=== PATIENT | male | born 1990 | race Caucasian/White ===

== ENCOUNTER 2021-01-28 13:00 | Emergency (ER) | payer OTHER, SELFPAY ==
[2021-01-28 13:08] VITALS: BP 150/83; PULSE 98; RESP 18; TEMP 36.7; O2SAT 98
[2021-01-28 13:17] VITALS: BP 150/83; PULSE 98; RESP 18; TEMP 36.7; O2SAT 98
--- NOTE | 2021-01-28 14:20 | ED.URI ---
HPI - URI/Sore Throat General Chief Complaint: Upper Respiratory Infection Stated Complaint: Congestion, Coughing, chills and headache Source: patient, family, RN notes reviewed and old records reviewed Mode of arrival: ambulatory Limitations: no limitations History of Present Illness HPI Narrative: 30 year old male who presents to express care with complaints of cough with expectoration of white mucous, chills,sweats, headache for the past 3-4 days,with stuffy nose and post nasal drainage, reports that he has been taking OTC Mucinex for his symptoms. Patient admits to some dyspnea with exertion and states that he has noted some wheezing at times Patient states that he does not know if he has had a fever, denies any ear pain or any sore throat. Patient admits to tobacco abuse of 1 pack daily of cigarettes for the past 10 years. MD elicited complaint: cough, rhinorrhea, nasal congestion and sinus pain Pertinent past history: other (bronchitis and tobacco abuse) Onset (ago): day(s) (3-4) Consistency: constant Description of mucous: other (white mucoid) Able to tolerate fluids by mouth: Yes Exacerbating factors: exertion Relieving factors: nothing Associated symptoms: chills, headache, rhinorrhea, nasal congestion, cough and shortness of breath (with exertion and wheezing) Treatments prior to arrival: other (Mucinex) Related Data Home Medications Medication Instructions Recorded Confirmed levetiracetam 750 mg PO BID 01/28/21 01/28/21 phenytoin sodium extended 100 mg PO DAILY 01/28/21 01/28/21 [Dilantin Extended] Allergies Allergy/AdvReac Type Severity Reaction Status Date / Time No Known Allergies Allergy Verified 01/28/21 13:16 Review of Systems Review of Systems: Narrative: CONSTITUTIONAL: Unknown if fever,positive chills, or sweats. EYES: Denies visual changes, redness, or discharge. ENT: Positive rhinorrhea, congestion, no sore throat, or otalgia. CARDIOVASCULAR: Denies chest pain, palpitations, or edema. RESPIRATORY: Positive productive cough or dyspnea with exertion. GASTROINTESTINAL: Denies abdominal pain, nausea, vomiting, or diarrhea. GENITOURINARY: Denies dysuria or hematuria. SKIN: Denies rash or itching. MUSCULOSKELETAL: Denies back pain, joint pain, or myalgia. NEUROLOGIC: positive headache,no numbness, or weakness. PSYCHIATRIC: Denies anxiety or depression. All systems reviewed & are unremarkable except as noted in HPI and below PMFSH Past Medical History Medical History (Updated 01/30/21 @ 21:26 by Debbie Lange NP) Bronchitis Epilepsy Surgical History Surgical History (Updated 01/30/21 @ 21:26 by Debbie Lange NP) History of appendectomy History of plastic surgery Forehead from dog bite S/P tonsillectomy and adenoidectomy Social History Social History (Updated 01/28/21 @ 14:31 by Debbie Lange NP) Smoking status: Current every day smoker Tobacco type: cigarettes Alcohol intake: current Living arrangements: with family Gender identity (if verbalized by the patient): Male Comments At time of signature, agree with nursing past medical, surgical, social and family history. There is no relevant family history pertinent to the presenting complaint Exam Narrative: Exam Narrative: GENERAL: Well-appearing, well-nourished, morbidly obese and in no acute distress. HEAD: Normocephalic, atraumatic. EYES: PERRLA and EOMI. ENT: Nares red with clear rhinorrhea no epistaxis. Mucous membranes moist.TM's normal with good light reflex, throat mild redness with no lesions or exudate, tonsils absent post nasal drainage present. NECK: Supple.no lymphadenopathy CHEST: Scattered wheezing to auscultation. No acute respiratory distress. O2 98% on room air HEART: Regular rate and rhythm. No murmur heard. Normal peripheral pulses. ABDOMEN: Soft, nontender, nondistended, normal active bowel sounds. EXTREMITIES: Normal range of motion. No edema. SKIN: Warm, dry, no rash. NEURO: No focal defi
== END 2021-01-28 14:43 | disposition home or self-care (01) ==
PROVIDERS: Emergency Provider Registered Nurse
DX: J40 Bronchitis, not specified as acute or chronic (principal); Z20.822 Contact with and (suspected) exposure to COVID-19; F17.210 Nicotine dependence, cigarettes, uncomplicated; G40.909 Epilepsy, unspecified, not intractable, without status epilepticus
CPT/HCPCS: 87426; 99213; C9803; G0463

== ENCOUNTER 2021-03-14 17:47 | Emergency (ER) | payer OTHER, SELFPAY ==
[2021-03-14 17:57] VITALS: BP 113/71; PULSE 85; RESP 18; TEMP 36.5; O2SAT 98
[2021-03-14 19:09] VITALS: BP 128/60; PULSE 85; RESP 16; O2SAT 97
--- NOTE | 2021-03-14 19:10 | PC.NURSE ---
Report received and care of pt assumed at this time.
--- NOTE | 2021-03-14 19:33 | ED.WOUNDLAC ---
HPI - Wound/Laceration General Chief Complaint: Wound/Laceration Stated Complaint: Finger Laceration Time Seen by Provider: 03/14/21 18:49 Source: patient Mode of arrival: ambulatory Limitations: no limitations History of Present Illness HPI narrative: This is a 30-year-old male that presents to the emergency department for laceration sustained just prior to arrival. Sustained to the left third finger while opening a can at work. He is not up to date on tetanus. Denies decreased ROM or numbness. Related Data Home Medications Medication Instructions Recorded Confirmed levetiracetam 750 mg PO BID 01/28/21 01/28/21 phenytoin sodium extended 100 mg PO DAILY 01/28/21 01/28/21 [Dilantin Extended] Allergies Allergy/AdvReac Type Severity Reaction Status Date / Time No Known Allergies Allergy Verified 03/14/21 18:00 Review of Systems Review of Systems: CONSTITUTIONAL: Denies fever SKIN: Reports laceration MUSCULOSKELETAL: Denies joint pain, or myalgia. NEUROLOGIC: Denies numbness All systems reviewed & are unremarkable except as noted in HPI and below PMFSH Past Medical History Medical History (Updated 03/14/21 @ 20:26 by Nuvia Fink PA-C) Bronchitis Epilepsy Surgical History Surgical History (Updated 01/30/21 @ 21:26 by Debbie Lange NP) History of appendectomy History of plastic surgery Forehead from dog bite S/P tonsillectomy and adenoidectomy Social History Social History (Updated 03/14/21 @ 19:37 by Nuvia Fink PA-C) Smoking status: Current every day smoker Tobacco type: cigarettes Substance use: never Gender identity (if verbalized by the patient): Male Exam Narrative: GENERAL: Well-appearing, well-nourished, and in no acute distress. HEAD: Normocephalic, atraumatic. EYES: EOMI. EXTREMITIES: Normal range of motion. No edema. Left third finger with small area (1cm) of skin avulsed to the distal phalanx palmar surface, no active bleeding SKIN: Warm, dry, no rash. NEURO: No focal deficits. Alert and oriented x3. PSYCH: Normal mood and affect Course Vital Signs Vital signs: Vital Signs Temperature 97.7 F 03/14/21 17:57 Pulse Rate 85 03/14/21 17:57 Respiratory Rate 18 08/26/21 17:57 Blood Pressure 113/71 03/14/21 17:57 Pulse Oximetry 98 03/14/21 17:57 Temperature 97.7 F 03/14/21 17:57 Pulse Rate 85 03/14/21 19:09 Respiratory Rate 16 03/14/21 19:09 Blood Pressure 128/60 03/14/21 19:09 Pulse Oximetry 97 03/14/21 19:09 Procedures Laceration Laceration 1: Date: 03/14/21 Time: 20:23 Site: hand Side (If applicable): left Size (cm): 1 Description: other (Skin avulsed) ====== Skin Level ====== ====== Subcutaneous Layer ====== ====== Muscle Layer ====== ====== Tendon Layer ====== Dressing: Wound was irrigated and bleeding controlled with Surgicel MDM - Wound/Laceration MDM Narrative Medical decision making narrative: Patient presents to emergency department for a small area of skin avulsion to the tip of the left third finger. Wound was irrigated. Patient was updated on tetanus. Bleeding was controlled with Surgicel. Patient was educated on wound care. He is to follow-up with primary care doctor. He was given warnings to return to the ER Critical Care Time Critical Care Time Critical Care Time: No Discharge Plan Discharge Clinical Impression: Laceration Patient Disposition: Home, Self-Care Condition: Stable Instructions: Skin Avulsion (ED) Additional Instructions: Return to the emergency department if you experience fever, redness or swelling of your wound, abnormal drainage from your wound, or any other symptoms that are concerning to you. Leave the bottom layer of gauze on until it falls off. Change top bandage daily Follow-up with your primary care doctor for wound check Prescriptions: No Action phenytoin sodium extended
[2021-03-14] MEDS: TETANUS,DIPHTHERIA,AC PERTUSSIS ADULT (0.5 ML) BOOSTRIX IM (20:37)
[2021-03-14 21:06] VITALS: BP 116/70; PULSE 71; RESP 16; O2SAT 98
== END 2021-03-14 21:09 | disposition home or self-care (01) ==
PROVIDERS: Emergency Provider Emergency Medicine
DX: S61.213A Laceration without foreign body of left middle finger without damage to nail, initial encounter (principal); Z23 Encounter for immunization; G40.909 Epilepsy, unspecified, not intractable, without status epilepticus; F17.210 Nicotine dependence, cigarettes, uncomplicated; W26.8XXA Contact with other sharp object(s), not elsewhere classified, initial encounter
CPT/HCPCS: 12001; 90471; 90715; 99282

== ENCOUNTER 2022-03-29 20:23 | Emergency (ER) | payer OTHER, SELFPAY ==
[2022-03-29 20:25] VITALS: BP 157/92; PULSE 91; RESP 20; TEMP 36.6; O2SAT 99
--- NOTE | 2022-03-29 20:43 | ED.GENADULT ---
HPI - General Adult General Chief complaint: Unspecified Stated complaint: Hx of Epilespy, AURA Time Seen by Provider: 03/29/22 20:30 History of Present Illness HPI narrative: 31-year-old male with history of seizure presenting the emergency department for evaluation of concern of aura and increased dizziness. Patient states she usually takes his morning dose of Keppra and Dilantin between 9 and 10 AM. He takes his afternoon dose of Dilantin at 3 PM and his evening doses of Keppra and Dilantin at approximately 10:50 PM. Patient states he overslept this morning and did not take his morning doses until noon and he took his afternoon dose of Dilantin at 4 PM. Patient states this evening he has not yet taken his nighttime doses but states that he has had his aura which he describes as increased tiredness. Patient states he feels that his balance has been off today. Patient denies any focal numbness or weakness. Patient denies any falls or injuries. Related Data Home Medications Medication Instructions Recorded Confirmed levetiracetam 750 mg tablet 750 mg PO BID 01/28/21 01/28/21 phenytoin sodium extended 100 mg 100 mg PO DAILY 01/28/21 01/28/21 capsule (Dilantin Extended) Allergies Allergy/AdvReac Type Severity Reaction Status Date / Time No Known Allergies Allergy Verified 03/29/22 20:29 Review of Systems Review of Systems: CONSTITUTIONAL: Denies fever, chills, or sweats. EYES: Denies visual changes, redness, or discharge. ENT: Denies rhinorrhea, congestion, sore throat, or otalgia. CARDIOVASCULAR: Denies chest pain, palpitations, or edema. RESPIRATORY: Denies cough or dyspnea. GASTROINTESTINAL: Denies abdominal pain, nausea, vomiting, or diarrhea. GENITOURINARY: Denies dysuria or hematuria. SKIN: Denies rash or itching. MUSCULOSKELETAL: Denies back pain, joint pain, or myalgia. NEUROLOGIC: See [facility] Past Medical History Medical History (Updated 03/30/22 @ 00:01 by Carlos Gray) Bronchitis Epilepsy Surgical History Surgical History (Updated 01/30/21 @ 21:26 by Debbie Lange NP) History of appendectomy History of plastic surgery Forehead from dog bite S/P tonsillectomy and adenoidectomy Social History Social History (Updated 03/14/21 @ 19:37 by Nuvia Fink PA-C) Smoking status: Current every day smoker Tobacco type: cigarettes Substance use: never Gender identity (if verbalized by the patient): Male Exam Narrative: APPEARANCE: Well appearing, no pain, no distress, well-nourished. HEAD: normocephalic, atraumatic. EYES: PERRLA/EOMI, conjunctivae clear. NOSE: Normal no drainage EARS:TMS clear with good light reflex. THROAT: Pharynx clear, no exudate. NECK: Supple. No adenopathy, no masses. RESPIRATORY: Airway patent, respirations nonlabored. Clear to auscultation bilaterally, no rales, rhonchi, wheezing. CARDIOVASCULAR: Regular rate and rhythm without murmurs rubs or gallops. ABDOMINAL: Soft, nontender, nondistended, normal bowel sounds MUSCULOSKELETAL: Moves all extremities. Strength/ROM intact, No edema, No calf tenderness. NEURO: Alert. Cranial nerves II through XII intact. Grossly intact SKIN: Warm, dry. Normal Color Course Course Emergency Course: Patient's Dilantin level was elevated. This was due to the patient taking his Dilantin off of his normal schedule. Case was discussed with neurology and they recommended admission. This was discussed with the patient and he has declined admission. Patient is alert and oriented and states that he is aware of the risks of not being admitted. Patient was advised to continue taking his Keppra as scheduled but to hold his Dilantin dose this evening. Patient was encouraged to have close follow-up with his neurologist. Patient and family were comfortable with the patient declining admission. Vital Signs Vital signs: Vital Signs Temperature 97.9 F 03/29/22 20:25 Pulse Rate 91 03/29/22 20:25 Respiratory Rate 20
[2022-03-29 21:01] VITALS: BP 131/89; PULSE 85; PULSE 87; RESP 21; O2SAT 96
[2022-03-29 21:02] LABS: Basophils Absolute Auto 0.1 K/mm3 (0.0-0.1); Basophils Percent Auto 0.5 % (0.2-1.2); Eosinophils Absolute Auto 0.3 K/mm3 (0-0.3); Eosinophils Percent Auto 2.6 % (0-4.4); Hematocrit 41.3 % (42.0-52.0); Hemoglobin 13.2 g/dL (14.0-18.0); Immature Granulocyte Absolute 0.03 K/mm3 (0.00-0.031); Immature Granulocyte Percent A 0.3 % (0-0.5); Lymphocytes Absolute Auto 2.46 K/mm3 (0.9-3.2); Lymphocytes Percent Auto 23.3 % (18.3-44.2); Mean Corpuscular Hemoglobin 29.8 pg (26-34); Mean Corpuscular Volume 93.2 fl (80-100); Mean Platelet Volume 10.1 fl (7.4-10.4); Monocytes Absolute Auto 0.8 K/mm3 (0.1-0.6); Monocytes Percent Auto 7.5 % (2.6-8.5); Neutrophils Percent Auto 65.8 % (45.5-73.1); Platelet Count Result 204 k/mm3 (150-375); Red Blood Count 4.43 M/mm3 (4.6-6.20); White Blood Count 10.6 K/mm3 (4.5-10.0)
[2022-03-29 21:16] VITALS: BP 132/84; PULSE 82; RESP 15; O2SAT 97
[2022-03-29 21:28] LABS: Phenytoin Dilantin 28 ug/mL (10-20)
[2022-03-29 21:39] LABS: Alanine Aminotransferase 14 U/L (6-50); Albumin Level 4.1 g/dL (3.5-5.1); Alkaline Phosphatase 54 U/L (38-126); Anion Gap 10 mmol/L (8-16); Aspartate Amino Transferase 20 U/L (17-59); Bilirubin,Total 0.4 mg/dL (0.2-1.3); Blood Urea Nitrogen 11 mg/dL (9-20); Calcium 8.6 mg/dL (8.4-10.2); Carbon Dioxide 27 mmol/L (22-30); Chloride 101 mmol/L (98-107); Estimated CRCL calculation 235 ml/min; Estimated Glomerular Filt Rate > 60; Glucose 103 mg/dL (65-110); Potassium 4.6 mmol/L (3.4-5.0); Sodium 138 mmol/L (137-145)
[2022-03-29 21:40] LABS: Influenza A QL RT-PCR Negative (Negative); Influenza B QL RT-PCR Negative (Negative); SARS-CoV-2 RNA PCR Negative
[2022-03-29 22:05] VITALS: BP 133/92; PULSE 78; RESP 19; O2SAT 96
[2022-04-02 08:56] LABS: Levetiracetam Keppra 17.4
== END 2022-03-29 22:05 | disposition home or self-care (01) ==
PROVIDERS: Emergency Provider Emergency Medicine
DX: R89.2 Abnormal level of other drugs, medicaments and biological substances in specimens from other organs, systems and tissues (principal); T42.0X6A Underdosing of hydantoin derivatives, initial encounter; Z91.138 Patient's unintentional underdosing of medication regimen for other reason; Z20.822 Contact with and (suspected) exposure to COVID-19; G40.909 Epilepsy, unspecified, not intractable, without status epilepticus; F17.210 Nicotine dependence, cigarettes, uncomplicated
CPT/HCPCS: 36415; 80053; 80177; 80185; 85025; 87502; 99283; C9803; U0003; U0005

== ENCOUNTER 2022-05-22 21:59 | Emergency (ER) | payer OTHER, SELFPAY ==
[2022-05-22 22:02] VITALS: BP 148/107; PULSE 82; RESP 18; TEMP 36.8; O2SAT 99
--- NOTE | 2022-05-22 22:45 | ED.GENADULT ---
HPI - General Adult General Chief complaint: Skin/Abscess/Foreign Body Stated complaint: insect bite Time Seen by Provider: 05/22/22 22:22 Source: patient and family Mode of arrival: ambulatory Limitations: no limitations History of Present Illness HPI narrative: Presents c/o possible insect bite that occurred yesterday. States felt a burning sensation to RT lateral leg but did not see anything to area. Later that night noticed blister forming. Wanted to be evaluated in case it's a Brown Recluse bite. Denies other problems or c/o at this time. Unsure of last TD. Related Data Home Medications Medication Instructions Recorded Confirmed levetiracetam 750 mg tablet 750 mg PO BID 01/28/21 01/28/21 phenytoin sodium extended 100 mg 100 mg PO DAILY 01/28/21 01/28/21 capsule (Dilantin Extended) Allergies Allergy/AdvReac Type Severity Reaction Status Date / Time No Known Allergies Allergy Verified 03/29/22 20:29 Review of Systems Review of Systems: CONSTITUTIONAL: Denies fever, chills, or sweats. EYES: Denies visual changes, redness, or discharge. ENT: Denies rhinorrhea, congestion, sore throat, or otalgia. CARDIOVASCULAR: Denies chest pain, palpitations, or edema. RESPIRATORY: Denies cough or dyspnea. GASTROINTESTINAL: Denies abdominal pain, nausea, vomiting, or diarrhea. GENITOURINARY: Denies dysuria or hematuria. SKIN: Possible spider bite to RT lateral leg. Denies rash or itching. MUSCULOSKELETAL: Denies back pain, joint pain, or myalgia. NEUROLOGIC: Denies headache, numbness, or weakness. PSYCHIATRIC: Denies anxiety or depression. [facility] Past Medical History Medical History Bronchitis Epilepsy Surgical History Surgical History History of appendectomy History of plastic surgery Forehead from dog bite S/P tonsillectomy and adenoidectomy Social History Social History Smoking status: Current every day smoker Tobacco type: cigarettes Substance use: never Gender identity (if verbalized by the patient): Male Exam Narrative: GENERAL: Well-appearing, well-nourished, and in no acute distress. HEAD: Normocephalic, atraumatic. EYES: PERRLA and EOMI. ENT: Nares clear, no rhinorrhea or epistaxis. Mucous membranes moist. NECK: Supple. CHEST: Clear to auscultation. No respiratory distress. HEART: Regular rate and rhythm. No murmur heard. Normal peripheral pulses. ABDOMEN: Soft, nontender, nondistended, normal active bowel sounds. EXTREMITIES: Normal range of motion. No edema. SKIN: Warm, dry, no rash. Right lateral lower leg [id number] annular area erythema with central vesicle. No induration, drainage. NEURO: No focal deficits. Alert and oriented x3. PSYCH: Normal mood and affect. Course Vital Signs Vital signs: Vital Signs Temperature 36.8 C 05/22/22 22:02 Pulse Rate 82 05/22/22 22:02 Respiratory Rate 18 05/22/22 22:02 Blood Pressure 148/107 H 05/22/22 22:02 Pulse Oximetry 99 05/22/22 22:02 Oxygen Delivery Room Air 05/22/22 22:02 Temperature 36.8 C 05/22/22 22:02 Pulse Rate 82 05/22/22 22:02 Respiratory Rate 18 05/22/22 22:02 Blood Pressure 148/107 H 05/22/22 22:02 Pulse Oximetry 99 05/22/22 22:02 Oxygen Delivery Room Air 05/22/22 22:02 Medical Decision Making Vital Signs Vital Signs: Vital Signs Temperature 36.8 C 05/22/22 22:02 Pulse Rate 82 05/22/22 22:02 Respiratory Rate 18 05/22/22 22:02 Blood Pressure 148/107 H 05/22/22 22:02 Pulse Oximetry 99 05/22/22 22:02 Oxygen Delivery Room Air 05/22/22 22:02 Temperature 36.8 C 05/22/22 22:02 Pulse Rate 82 05/22/22 22:02 Respiratory Rate 18 05/22/22 22:02 Blood Pressure 148/107 H 05/22/22 22:02 Pulse Oximetry 99 05/22/22 22:02 Oxygen Delivery Room Air 05/22/22 22:02 Discharge
== END 2022-05-22 23:07 | disposition home or self-care (01) ==
PROVIDERS: Emergency Provider Nurse Practitioner
DX: S80.861A Insect bite (nonvenomous), right lower leg, initial encounter (principal); F17.200 Nicotine dependence, unspecified, uncomplicated; W57.XXXA Bitten or stung by nonvenomous insect and other nonvenomous arthropods, initial encounter
CPT/HCPCS: 99281

== ENCOUNTER 2022-09-10 20:39 | Observation (INO) | payer OTHER, SELFPAY ==
[2022-09-10] VITALS (17 sets, daily range): BP systolic 102–126; BP diastolic 55–78; PULSE 103–119; RESP 14–39; TEMP 36.7–38.2; O2SAT 92–98
--- NOTE | ~2022-09-10 | US_ITS ---
EXAMINATION: US arterial ankle brachial ind DATE: 09/12/2022 18:12 INDICATION: Cellulitis and lymphedema. TECHNIQUE: Segmental pressures and plethysmographic and Doppler waveforms of the brachial and lower e xtremity arteries were obtained. COMPARISON: None. FINDINGS: Left brachial artery pressure is 160 mm Hg. The right ankle-brachial index (ALEXANDRA) is 1.04 (normal >= 0.9-1.0). The right great toe-brachial index (TBI) is 0.48 (normal >= 0.65). Arterial Doppler waveforms are triphasic at the ankle. The left ALEXANDRA is 1.18. The left TBI is 0.69. Arterial Doppler waveforms are at least triphasic in post erior tibial artery and biphasic in dorsalis pedis. IMPRESSION: 1. Decreased right TBI and normal right ALEXANDRA, consistent with right-sided arterial occlusive disease. Reviewed, dictated and finalized at location A. AURANT MANAGER IMPRESSION: 1. Decreased right TBI and normal right ALEXANDRA, consistent with right-sided arteri al occlusive disease.
--- NOTE | ~2022-09-10 | XR_ITS ---
EXAM: XR tibia fibula RT 2V DATE: 09/10/2022 22:51 HISTORY: Right lower leg pain, swelling, redness . COMPARISON: None available. FINDINGS: Normal mineralization. No fracture or dislocation. No lytic or blastic lesion. Joint space s are maintained. No erosion or periosteal change. Soft tissue calcifications likely representing phl eboliths. IMPRESSION: No acute osseous finding in the right tibia/fibula. Reviewed, dictated and finalized at location K. SAMPLER
--- NOTE | ~2022-09-10 | XR_ITS ---
EXAMINATION: XR chest 1V portable Exam Date/Time: 09/10/2022 21:30 REVENUE CYCLE ANALYST HISTORY: cough, LIGHTHEADEDNESS AND DIZZINESS Comparison: None available. RESULT: Lines, tubes, and devices: None. Lungs and pleura: Slightly low volumes with crowding and overlying soft tissue artifact. Cardiomediastinal silhouette: Unremarkable. Other: No acute osseous or upper abdominal finding. IMPRESSION: No acute cardiopulmonary process. Reviewed, dictated and finalized at location K. NUE CYCLE ANALYST
--- NOTE | ~2022-09-10 | US_ITS ---
Duplex Sonography of the right extremity: Indication: Pain Findings: Sagittal and transverse B-mode images as well as color-flow imaging were performed on the r ight femoral and popliteal veins. B-mode examination was done without and with compression in the tr ansverse plane. There is good visualization of the common femoral, proximal profunda femoral, superf icial femoral, greater saphenous, and popliteal veins. Normal flow was seen on color-flow imaging. N ormal compressibility was demonstrated. Right posterior tibial and peroneal veins are also patent. Impression: No evidence of deep vein thrombosis involving the right lower extremity. Reviewed, dictated and finalized at location M. TH SAFETY ENGINEER Impression: No evidence of deep vein thrombosis involving the right lower extremity.
--- NOTE | 2022-09-10 20:52 | ECG_ITS ---
Measurements Intervals [place] Rate: 117 P: 41 MS: 134 QRS: 23 QRSD: 121 T: 27 QT: 315 QTc: 440 Interpretive Statements SINUS TACHYCARDIA POSSIBLE RIGHT VENTRICULAR CONDUCTION DELAY [RSR (QR) IN V1/V2] BORDERLINE ECG NO PREVIOUS ECG AVAILABLE FOR COMPARISON Electronically Signed On 09-11-2022 10:08:24 SPORTS PHYSIOLOGIST by Brandon Martínez M.D.
[2022-09-10 21:14] LABS: Hematocrit 46.1 % (42.0-52.0); Hemoglobin 15.8 g/dL (14.0-18.0); Mean Corpuscular HGB Conc 34.3 g/dl (32-36); Mean Corpuscular Hemoglobin 31.3 pg (26-34); Mean Corpuscular Volume 91.3 fl (80-100); Mean Platelet Volume 10.4 fl (7.4-10.4); Platelet Count Result 189 k/mm3 (150-375); Red Blood Count 5.05 M/mm3 (4.6-6.20); Red Cell Distribution Width 13.1 % (11.5-14.5)
--- NOTE | 2022-09-10 21:24 | ED.GENADULT ---
HPI - General Adult General Chief complaint: Skin/Abscess/Foreign Body Stated complaint: Right leg redness/pain Time Seen by Provider: 09/10/22 21:16 Source: family and RN notes reviewed History of Present Illness HPI narrative: Patient presents emergency room from home for right leg redness. Patient states that he had been feeling fine until earlier today when she began to feel subjectively hot and cold he states that with that he had 1 episode of emesis states that he felt febrile at home tonight and had taken 2 g of Tylenol approximately 45 minutes prior to arrival and also noticing that he had redness over his right leg. He states that he has been feeling hot and sweaty since that time as well as week he denies any chest pain or shortness of breath states he has had in the occasional cough he denies any abdominal pain denies any current nausea or vomiting. Patient states that he began to notice redness over his right lower anterior leg earlier today but denies any known trauma or open wounds Related Data Home Medications Medication Instructions Recorded Confirmed levetiracetam 750 mg tablet 750 mg PO BID 01/28/21 09/11/22 phenytoin sodium extended 100 mg 100 mg PO DAILY 01/28/21 09/11/22 capsule (Dilantin Extended) Allergies Allergy/AdvReac Type Severity Reaction Status Date / Time No Known Allergies Allergy Verified 09/10/22 21:13 Review of Systems Review of Systems: Gen.: See HPI ENT: Denies congestion Respiratory: Denies shortness of breath or cough CV: Denies chest pain or palpitations GI: Denies abdominal pain or diarrhea reports nausea and vomiting x1 Musculoskeletal: Denies back pain or muscle pain Neuro: Denies numbness, tingling, weakness or focal weakness Skin: Reports right leg leg redness Except as documented, all other systems reviewed and negative [facility] Past Medical History Medical History Bronchitis Epilepsy Surgical History Surgical History History of appendectomy History of plastic surgery Forehead from dog bite S/P tonsillectomy and adenoidectomy Family History Family History (Updated 09/11/22 @ 02:06 by Rex Rivera RN) Mother Heart disease Father Malignant neoplasm of prostate Social History Social History Smoking status: Current every day smoker Tobacco type: cigarettes Substance use: never Lack of Transportation: No Lack of Food: Never True Current Housing: I Have Housing Concerned About Future Housing: No Difficulty Paying Gas/Electric Bills: No Difficulty Paying for Meds: No Currently Unemployed: No Education: High School Diploma/GED Difficulty w/ Childcare or Family Care: No Living arrangements: with family Gender identity (if verbalized by the patient): Male Spiritual care concerns: No Exam Narrative: APPEARANCE: Laying in bed, diaphoretic EYES: EOMI HEENT: Normocephalic, atraumatic, OMM RESPIRATORY: No respiratory distress Clear to auscultation bilaterally with no rhonchi wheezing or rales. CARDIOVASCULAR: Regular rate and rhythm without murmurs rubs or gallops. ABDOMINAL: Soft, nontender, nondistended, no rebound or guarding MUSCULOSKELETAl: Moves all extremities. No clubbing, cyanosis or edema. Bilateral dorsalis pedis pulse 2+ NEURO: Awake and alert. Following commands, speech normal, no focal deficits SKIN:: Warm, dry. Erythema over the right anterior medial lateral leg that extends up to the mid tibia but is not circumferential there is no open wounds over the anterior ankle there is a erythematous rash with dry scaling skin no crepitance no fluctuance PSYCHIATRIC: Normal affect/mood, Course Course Emergency Course: Called and discussed with Dr. Renteria for hospitalist service presentation and work-up she agrees with admission at this time Discusse
[2022-09-10] MEDS: SODIUM CHLORIDE 0.9% IV 1,000 ML 999 ML IV CONT ×2 (21:27→22:51)
[2022-09-10 21:34] LABS: Alanine Aminotransferase 24 U/L (6-50); Albumin Level 4.5 g/dL (3.5-5.1); Alkaline Phosphatase 91 U/L (38-126); Anion Gap 8 mmol/L (8-16); Aspartate Amino Transferase 25 U/L (17-59); Blood Urea Nitrogen 14 mg/dL (9-20); CRP 4.1 mg/dL (<1.0); Calcium 8.7 mg/dL (8.4-10.2); Carbon Dioxide 26 mmol/L (22-30); Chloride 105 mmol/L (98-107); Estimated CRCL calculation 220 ml/min; Estimated Glomerular Filt Rate > 60; Glucose 114 mg/dL (65-110); Potassium 3.6 mmol/L (3.4-5.0); Sodium 139 mmol/L (137-145)
[2022-09-10 21:41] LABS: Band Neutrophils Percent 8 % (0-6); Lymphocytes Absolute Manual 0.62 K/mm3 (1.1-4.5); Monocytes Absolute Manual 1.55 K/mm3 (0.1-0.90); Monocytes Percent Manual 5 % (3-9); Neutrophils Absolute Manual 28.83 K/mm3 (1.3-6.7); Neutrophils Percent Manual 85 % (46-73); Total Cells Counted 100
[2022-09-10 21:42] LABS: Platelet Estimate Adequate (Adequate); Schistocytes None Seen (NORMAL); Stomatocytes 2+ (NORMAL)
[2022-09-10 22:27] LABS: Acetaminophen < 10 ug/mL (10-30); Lactic Acid Reflex 1.6 mmol/L (0.7-2.0)
[2022-09-10 22:29] LABS: INR 1.2; Partial Thromboplastin Time 24.7 SECONDS (22.3-36.8); Prothrombin Time 14.9 Seconds (11.1-14.7)
[2022-09-10 22:34] LABS: Lipase 33 U/L (23-300)
[2022-09-10 22:52] LABS: Influenza A QL RT-PCR Negative (Negative); Influenza B QL RT-PCR Negative (Negative); SARS-CoV-2 RNA PCR Negative
[2022-09-11] VITALS (19 sets, daily range): BP systolic 122–153; BP diastolic 66–96; PULSE 92–109; RESP 12–29; TEMP 36.1–37.2; O2SAT 93–100; BMI 61.8
[2022-09-11 00:44] LABS: Appearance Urine Clear (Clear); Bilirubin Urine 1+ (Negative); Blood Urine Negative (Negative); Color Urine Amber (Yellow); Glucose Urine UA Negative (Negative); Ketones Urine Trace mg/dL (Negative); Leukocyte Esterase Ur Negative LEU/UL (Negative); Nitrate Urine Negative (Negative); Protein Urine Trace mg/dL (Negative); Specific Grav Ur 1.025 (1.001-1.035); Urobilinogen Urine 0.2 mg/dL (<2.0); pH Urine 5.5 (5.0-9.0)
[2022-09-11 00:50] LABS: Bacteria Urine Trace /hpf; Mucus Urine Rare /lpf; Squamous Epithelial Cell Urine Rare /hpf (Few); WBC Urine 0-3 /hpf
[2022-09-11 00:59] LABS: Add Urine Microscopic? YES
[2022-09-11 01:49] LABS: Acetaminophen < 10 ug/mL (10-30)
--- NOTE | 2022-09-11 02:07 | ADMGEN ---
This patient, Lukas German, was admitted to [address] [place] [address] Room 300-01. Patient/family oriented to hospital policies and general routines including ID bracelet, bed and alarms, visiting hours, pain management, procedures, bathroom and other care routines, personal items, smoking policy, room service/diet, and visiting hours. Information on how to activate the Rapid Response Team has been discussed. Patient/Family are encouraged to report perceived risks to care and to ask questions if they do not understand what they are told or what they should do.
--- NOTE | 2022-09-11 02:08 | PM.IMHP ---
H&P: HPI History of Present Illness Date/Time: 09/11/22 02:08 Chief Complaint: cellulitis Narrative: This is a 31-year-old male with past medical history significant for morbid obesity, epilepsy, tobacco dependence, patient smokes 1 pack of cigarettes daily. Patient presents to the emergency room due to right lower extremity swelling, tenderness, warmth, ongoing now for 2 weeks in the last 3 days have a having fevers, night sweats, has had a dry cough, denies sputum production, denies shortness of breath, No nausea, no vomiting, no abdominal pain, no diarrhea. Patient did not go to urgent care prior to come into emergency room. Preliminary workup was significant for WBC of 30,000, bands 8%. Patient is been admitted for further evaluation management and treatment. Review of Systems Review of Systems: Right lower extremity swelling, tenderness, redness, warmth, chills, fevers, night sweats. Constitutional: Constitutional: Reports chills, Reports fatigue, Reports fever(s), Reports malaise and Reports night sweats Eyes: Eyes: Denies change in vision ENT: Denies dysphagia and Denies odynophagia Cardiovascular: Cardiovascular: Denies lightheadedness, Denies radiating jaw, neck or arm pain and Denies dyspnea on exertion Respiratory: Respiratory: Denies change in phlegm color, Denies chest congestion, Reports cough and Denies excessive phlegm production Gastrointestinal: Gastrointestinal: Denies abdominal pain, Denies dyspepsia, Denies heartburn, Denies diarrhea, Denies nausea and Denies vomiting Genitourinary: Genitourinary: Denies dysuria Musculoskeletal: Musculoskeletal: Reports other ( Right lower extremity tenderness, warmth, erythema) Integumentary/Breasts: Skin/Breast: Reports swelling, Reports erythema ( right lower extremity) and Reports skin swelling Neurologic: Denies focal weakness and Denies Sensory deficit (Neuro) Psychiatric: Psychiatric: Reports no additional psychiatric complaints and Reports as per HPI Endocrine: Endocrine: Denies cold intolerance, Denies flushing, Denies heat intolerance, Denies polyphagia, Denies polydipsia and Denies palpitations Hematologic/Lymphatic: Hematologic/Lymphatic: Reports no additional hematologic/lymphatic complaints and Reports as per HPI Allergic/Immunologic: Allergic/Immunologic: Reports no additional allergic/immunologic complaints and Reports as per HPI [facility] Past Medical History Medical History Bronchitis Epilepsy Surgical History Surgical History History of appendectomy History of plastic surgery Forehead from dog bite S/P tonsillectomy and adenoidectomy Family History Family History (Updated 09/11/22 @ 02:06 by Rex Rivera RN) Mother Heart disease Father Malignant neoplasm of prostate Social History Social History Smoking status: Current every day smoker Tobacco type: cigarettes Substance use: never Lack of Transportation: No Lack of Food: Never True Current Housing: I Have Housing Concerned About Future Housing: No Difficulty Paying Gas/Electric Bills: No Difficulty Paying for Meds: No Currently Unemployed: No Education: High School Diploma/GED Difficulty w/ Childcare or Family Care: No Living arrangements: with family Gender identity (if verbalized by the patient): Male Spiritual care concerns: No Meds Home Medications and Allergies Home Medications Medication Instructions Recorded Confirmed Type levetiracetam 750 mg tablet 750 mg PO BID 01/28/21 09/11/22 History phenytoin sodium extended 100 mg 100 mg PO DAILY 01/28/21 09/11/22 History capsule (Dilantin Extended) Allergies Allergy/AdvReac Type Severity Reaction Status Date / Time No Known Allergies Allergy Verified 09/10/22 21:13 Vital Signs Vital Signs - 24
[2022-09-11] MEDS: SODIUM CHLORIDE 0.9% IV 1,000 ML 125 ML IV CONT ×2 (02:21→12:30)
[2022-09-11 06:27] LABS: Basophils Absolute Auto 0.1 K/mm3 (0.0-0.1); Basophils Percent Auto 0.2 % (0.2-1.2); Hematocrit 41.8 % (42.0-52.0); Hemoglobin 13.9 g/dL (14.0-18.0); Immature Granulocyte Absolute 0.48 K/mm3 (0.00-0.031); Immature Granulocyte Percent A 1.8 % (0-0.5); Lymphocytes Absolute Auto 1.38 K/mm3 (0.9-3.2); Lymphocytes Percent Auto 5.2 % (18.3-44.2); Mean Corpuscular HGB Conc 33.3 g/dl (32-36); Mean Corpuscular Hemoglobin 30.6 pg (26-34); Mean Corpuscular Volume 92.1 fl (80-100); Mean Platelet Volume 10.5 fl (7.4-10.4); Monocytes Absolute Auto 1.1 K/mm3 (0.1-0.6); Monocytes Percent Auto 4.3 % (2.6-8.5); Neutrophils Absolute Auto 23.4 K/mm3 (1.3-6.7); Neutrophils Percent Auto 88.5 % (45.5-73.1); Platelet Count Result 160 k/mm3 (150-375); Red Blood Count 4.54 M/mm3 (4.6-6.20); White Blood Count 26.4 K/mm3 (4.5-10.0)
[2022-09-11 06:39] LABS: Estimated CRCL calculation 254 ml/min; Estimated Glomerular Filt Rate > 60
[2022-09-11 06:41] LABS: Anion Gap 4 mmol/L (8-16); Blood Urea Nitrogen 13 mg/dL (9-20); Calcium 8.2 mg/dL (8.4-10.2); Carbon Dioxide 29 mmol/L (22-30); Chloride 101 mmol/L (98-107); Estimated CRCL calculation 221 ml/min; Estimated Glomerular Filt Rate > 60; Glucose 144 mg/dL (65-110); Potassium 3.7 mmol/L (3.4-5.0); Sodium 134 mmol/L (137-145)
[2022-09-11] MEDS: ALBUTEROL SULFATE NEB 2.5 MG/3 ML INH INHALATION ×3 (08:22→20:36)
[2022-09-11] MEDS: IPRATROPIUM BR 0.02% INH SOLN 0.5 MG/2.5 ML VIAL INHALATION ×3 (08:22→20:36)
[2022-09-11] MEDS: ENOXAPARIN 40 MG/0.4 ML SYRINGE SUB-Q (09:04)
[2022-09-11] MEDS: levETIRAcetam 250 MG TABLET 750 MG PO (09:04)
[2022-09-11] MEDS: PHENYTOIN SODIUM 100 MG EXTENDED RELEASE CAP PO (09:04)
[2022-09-11] MEDS: ACETAMINOPHEN 500 MG TABLET 1000 MG PO (09:09)
--- NOTE | 2022-09-11 12:07 | PM.IMPN ---
Progress Note: A&P Assessment and Plan (1) Cellulitis of right leg: Code(s): L03.115 - Cellulitis of right lower limb Status: Acute Assessment and Plan: Started on Ancef in the ER, switched to vancomycin and Zosyn upon admission Will transition to vancomycin and Rocephin today Blood cultures from 09/10 pending Leukocytosis improving Elevated CRP, recheck tomorrow Dopplers negative for DVT, x-ray negative for periosteal changes or abscess Check a1c due to mild hyperglycemia, consider ABIs (2) Epilepsy: Code(s): G40.909 - Epilepsy, unspecified, not intractable, without status epilepticus Status: Acute Assessment and Plan: Stable, continue home meds (3) Tobacco dependence: Code(s): F17.200 - Nicotine dependence, unspecified, uncomplicated Status: Acute Assessment and Plan: Nicotine patch as needed, smoking cessation recommended (4) Morbid obesity with BMI of 60.0-69.9, adult: Code(s): E66.01 - Morbid (severe) obesity due to excess calories; Z68.44 - Body mass index [BMI] 60.0-69.9, adult Status: Acute Assessment and Plan: Diet and exercise modifications discussed and recommended Plan DVT prophylaxis with Lovenox GI prophylaxis not indicated Code status full code Subjective Date/time seen: 09/11/22 12:07 Interval history: No overnight events noted. No chest pain or shortness of breath. No nausea, vomiting or diarrhea. No fevers or chills. Patient states the erythema, pain and swelling in his leg is much improved. Review of Systems Review of Systems: 12 point review of systems was assessed and was negative except as noted in the HPI Exam Narrative: General: No acute distress, alert and oriented per baseline HEENT: Atraumatic, normocephalic, mucous membranes moist CV: Regular rate and rhythm, S1, S2 Lungs: Clear to auscultation bilaterally, no rales or crackles noted, no wheezes, good air entry Abdomen: Soft, nontender, nondistended Extremities: Normal to inspection, blotchy erythema noted on right lower extremity, blanches, no petechiae, warmth, open areas Skin: No rashes noted, no lesions or wounds seen Psych: Euthymic, normal affect Objective Data Vital Signs Vital Signs: Vital Signs - 24 hr 09/10/22 20:50 09/10/22 21:11 09/10/22 21:11 Temperature 98.1 F 100.7 F H Pulse Rate 119 H 113 H 115 H Respiratory Rate 24 H 14 Blood Pressure 102/55 L Pulse Oximetry 98 94 94 Oxygen Delivery Room Air 09/10/22 21:15 09/10/22 21:16 09/10/22 21:32 Temperature Pulse Rate 115 H 114 H 112 H Respiratory Rate 16 18 23 H Blood Pressure 117/65 Pulse Oximetry 94 95 Oxygen Delivery 09/10/22 21:45 09/10/22 22:00 09/10/22 22:15 Temperature Pulse Rate 111 H 106 H 103 H Respiratory Rate 25 H 24 H 22 H Blood Pressure Pulse Oximetry 96 Oxygen Delivery 09/10/22 22:30 09/10/22 22:52 09/10/22 22:53 Temperature Pulse Rate 107 H 105 H 104 H Respiratory Rate 22 H 22 H Blood Pressure 119/76 Pulse Oximetry 92 96 Oxygen Delivery 09/10/22 23:00 09/10/22 23:01 09/10/22 23:25 Temperature Pulse Rate 105 H 105 H 103 H Respiratory Rate Blood Pressure 126/78 Pulse Oximetry 94 Oxygen Delivery 09/10/22 23:31 09/10/22 23:45 09/10/22 23:46 Temperature Pulse Rate 103 H 104 H 105 H Respiratory Rate 34 H 39 H 38 H Blood Pressure 125/72 Pulse Oximetry 96 95 Oxygen Delivery 09/11/22 00:05 09/11/22 00:17 09/11/22 00:34 Temperature Pulse Rate 100 100 102 H Respiratory Rate 24 H 16 12 Blood Pressure Pulse Oximetry 95 95 Oxygen Delivery 09/11/22 00:39 09/11/22 00:45 09/11/22 00:46 Temperature Pulse Rate 101 H 100 100 Respiratory Rate 24 H 18 19 Blood Pressure 122/78 128/76 Pulse Oximetry 96 95 95 Oxygen Delivery 09/11/22 01:00 09/11/22 01:01 09/11/22 01:30 Temperature 99.0 F Pulse Rate 103 H 104 H 105 H Re
[2022-09-11] MEDS: cefTRIAXone 2 GM in SODIUM CHLORIDE 0.9% IV 100 ML 200 ML IVPB (12:30)
[2022-09-11] MEDS: PHENYTOIN SODIUM 100 MG EXTENDED RELEASE CAP 300 MG PO (18:00)
[2022-09-11] MEDS: levETIRAcetam 500 MG TABLET 1500 MG PO (20:05)
[2022-09-12] MEDS: PHENYTOIN SODIUM 100 MG EXTENDED RELEASE CAP 300 MG PO ×3 (00:20→17:13)
[2022-09-12] MEDS: SODIUM CHLORIDE 0.9% IV 1,000 ML 125 ML IV CONT ×2 (03:06→10:52)
--- NOTE | 2022-09-12 04:16 | PCRCNOTE ---
Window of time for administration has passed. See next scheduled administration.
[2022-09-12] MEDS: HYDROcodone/acetaminophen (*CRX) 5-325 MG TABLET 1 TAB PO (05:53)
[2022-09-12 06:00] VITALS: BP 145/90; PULSE 99; RESP 22; TEMP 36.4; O2SAT 95
[2022-09-12 06:08] LABS: Basophils Percent Auto 0.3 % (0.2-1.2); Eosinophils Percent Auto 0.3 % (0-4.4); Hematocrit 39.1 % (42.0-52.0); Immature Granulocyte Percent A 0.6 % (0-0.5); Lymphocytes Absolute Auto 2.32 K/mm3 (0.9-3.2); Lymphocytes Percent Auto 14.9 % (18.3-44.2); Mean Corpuscular HGB Conc 33.2 g/dl (32-36); Mean Corpuscular Hemoglobin 31.4 pg (26-34); Mean Corpuscular Volume 94.4 fl (80-100); Mean Platelet Volume 10.9 fl (7.4-10.4); Monocytes Absolute Auto 1.4 K/mm3 (0.1-0.6); Monocytes Percent Auto 8.7 % (2.6-8.5); Neutrophils Absolute Auto 11.7 K/mm3 (1.3-6.7); Neutrophils Percent Auto 75.2 % (45.5-73.1); Platelet Count Result 148 k/mm3 (150-375); Red Blood Count 4.14 M/mm3 (4.6-6.20); White Blood Count 15.6 K/mm3 (4.5-10.0)
[2022-09-12 06:18] LABS: Alanine Aminotransferase 18 U/L (6-50); Albumin Level 3.6 g/dL (3.5-5.1); Alkaline Phosphatase 64 U/L (38-126); Anion Gap 5 mmol/L (8-16); Aspartate Amino Transferase 16 U/L (17-59); Bilirubin,Total 0.3 mg/dL (0.2-1.3); Blood Urea Nitrogen 9 mg/dL (9-20); Carbon Dioxide 27 mmol/L (22-30); Chloride 106 mmol/L (98-107); Cholesterol 147 mg/dL (0-200); Estimated CRCL calculation 254 ml/min; Estimated Glomerular Filt Rate > 60; Glucose 125 mg/dL (65-110); HDL Direct 33 mg/dL; Potassium 3.8 mmol/L (3.4-5.0); Sodium 138 mmol/L (137-145); Triglycerides 99 mg/dL (<150)
[2022-09-12 06:24] LABS: LDL Cholesterol Direct 79 mg/dL
[2022-09-12 06:30] LABS: CRP 22.1 mg/dL (<1.0)
[2022-09-12 06:57] LABS: Hemoglobin A1C 4.6 % (<5.7)
[2022-09-12] MEDS: ENOXAPARIN 40 MG/0.4 ML SYRINGE SUB-Q (08:54)
[2022-09-12] MEDS: levETIRAcetam 500 MG TABLET 1500 MG PO ×2 (08:55→20:00)
--- NOTE | 2022-09-12 10:00 | PM.IMPN ---
Progress Note: A&P Assessment and Plan (1) Cellulitis of right leg: Code(s): L03.115 - Cellulitis of right lower limb Status: Acute Assessment and Plan: Started on Ancef in the ER, switched to vancomycin and Zosyn upon admission Will transition to vancomycin and Rocephin today Blood cultures from 09/10 pending, NGTD Leukocytosis improving, down to 15 today Elevated CRP, recheck much worse at 22.1, clinically improving however, PCT 1.4 concerning for sepsis, recheck CRP tomorrow Dopplers negative for DVT, x-ray negative for periosteal changes or abscess A1c 4.6, hyperglycemia likely 2/2 infection, monitor Check ABIs (2) Epilepsy: Code(s): G40.909 - Epilepsy, unspecified, not intractable, without status epilepticus Status: Acute Assessment and Plan: Stable, continue home meds (3) Tobacco dependence: Code(s): F17.200 - Nicotine dependence, unspecified, uncomplicated Status: Acute Assessment and Plan: Nicotine patch as needed, smoking cessation recommended (4) Morbid obesity with BMI of 60.0-69.9, adult: Code(s): E66.01 - Morbid (severe) obesity due to excess calories; Z68.44 - Body mass index [BMI] 60.0-69.9, adult Status: Acute Assessment and Plan: Diet and exercise modifications discussed and recommended Plan DVT prophylaxis with Lovenox GI prophylaxis not indicated Code status full code Subjective Date/time seen: 09/12/22 10:00 Interval history: No overnight events noted. No chest pain or shortness of breath. No nausea, vomiting or diarrhea. No fevers or chills. Symptoms continue to improve. Review of Systems Review of Systems: 12 point review of systems was assessed and was negative except as noted in the HPI Exam Narrative: General: No acute distress, alert and oriented per baseline HEENT: Atraumatic, normocephalic, mucous membranes moist CV: Regular rate and rhythm, S1, S2 Lungs: Clear to auscultation bilaterally, no rales or crackles noted, no wheezes, good air entry Abdomen: Soft, nontender, nondistended Extremities: Lacy erythema on right lower extremity, tibial surface, blanches, no petechiae, no open wounds Skin: No rashes noted, no lesions or wounds seen Psych: Euthymic, normal affect Objective Data Vital Signs Vital Signs: Vital Signs - 24 hr 09/11/22 13:50 09/11/22 13:58 09/11/22 14:00 Temperature 97 F L Pulse Rate 94 98 92 Respiratory Rate 20 20 19 Blood Pressure 141/96 H Pulse Oximetry 100 Oxygen Delivery 09/11/22 20:38 09/11/22 20:38 09/11/22 21:50 Temperature 97.9 F Pulse Rate 107 H 105 H Respiratory Rate 20 20 Blood Pressure 153/73 H Pulse Oximetry 97 95 Oxygen Delivery Room Air 09/11/22 20:05 09/12/22 06:00 09/11/22 20:50 Temperature 97.5 F L Pulse Rate 99 109 H Respiratory Rate 22 H 20 Blood Pressure 145/90 H Pulse Oximetry 95 Oxygen Delivery Room Air Intake/Output Intake/Output: Intake & Output 09/09/22 09/10/22 09/11/22 09/12/22 23:59 23:59 23:59 23:59 Intake Total 1999 4970 240 Balance 1999 4970 240 Meds/Results Medications: Active Medications Generic Name Dose Route Start Last Admin Trade Name Freq PRN Reason Stop Dose Admin Acetaminophen 1,000 mg 09/11/22 02:49 09/11/22 09:09 Acetaminophen 500 Mg Tablet PO 1,000 mg Q6H PRN Administration Mild Pain (1-3) or Fever Hydrocodone Bitart/Acetaminophen 1 tab 09/12/22 05:21 09/12/22 05:53 Hydrocodone/Acetaminophen (*Crx) 5-325 Mg Tablet PO 1 tab Q4H PRN Administration Pain Rated 7-10 Albuterol 2.5 mg 09/11/22 08:00 09/12/22 04:12 Albuterol Sulfate Neb 2.5 Mg/3 Ml Inh INHALATION Not Given Q6HRT ESTEFANY Enoxaparin Sodium 40 mg 09/11/22 09:00 09/12/22 08:54 Enoxaparin 40 Mg/0.4 Ml Syringe SUB-Q 40 mg DAILY ESTEFANY Administration Sodium Chloride 1,000 mls @ 125 mls/hr 09/11/22 00:45 09/12/22 03:06
[2022-09-12 11:04] LABS: Procalcitonin 1.4 ng/mL
[2022-09-12] MEDS: cefTRIAXone 2 GM in SODIUM CHLORIDE 0.9% IV 100 ML IVPB (12:08)
[2022-09-12 14:00] VITALS: BP 143/80; PULSE 89; RESP 20; TEMP 36.4; O2SAT 99
[2022-09-12 15:20] LABS: Vancomycin Trough 5.7 ug/mL (10.0-20.0)
[2022-09-12] MEDS: ALBUTEROL SULFATE NEB 2.5 MG/3 ML INH INHALATION (20:10)
[2022-09-12] MEDS: IPRATROPIUM BR 0.02% INH SOLN 0.5 MG/2.5 ML VIAL INHALATION (20:10)
[2022-09-12 20:12] VITALS: PULSE 87; RESP 16
[2022-09-12 22:00] VITALS: BP 134/88; PULSE 92; RESP 22; TEMP 36.2; O2SAT 99
[2022-09-13] MEDS: PHENYTOIN SODIUM 100 MG EXTENDED RELEASE CAP 300 MG PO (00:49)
[2022-09-13] MEDS: SODIUM CHLORIDE 0.9% IV 1,000 ML 125 ML IV CONT (00:50)
[2022-09-13] MEDS: cefTRIAXone 2 GM in SODIUM CHLORIDE 0.9% IV 100 ML 200 ML IVPB (03:57)
[2022-09-13 06:00] VITALS: BP 133/90; PULSE 89; RESP 22; TEMP 35.8; O2SAT 96
[2022-09-13 06:32] LABS: Basophils Absolute Auto 0.1 K/mm3 (0.0-0.1); Basophils Percent Auto 0.5 % (0.2-1.2); Eosinophils Absolute Auto 0.2 K/mm3 (0-0.3); Eosinophils Percent Auto 2.2 % (0-4.4); Hematocrit 37.1 % (42.0-52.0); Hemoglobin 12.2 g/dL (14.0-18.0); Immature Granulocyte Absolute 0.05 K/mm3 (0.00-0.031); Immature Granulocyte Percent A 0.5 % (0-0.5); Lymphocytes Absolute Auto 1.92 K/mm3 (0.9-3.2); Lymphocytes Percent Auto 20.7 % (18.3-44.2); Mean Corpuscular HGB Conc 32.9 g/dl (32-36); Mean Corpuscular Hemoglobin 30.6 pg (26-34); Mean Platelet Volume 10.5 fl (7.4-10.4); Monocytes Absolute Auto 1.1 K/mm3 (0.1-0.6); Monocytes Percent Auto 11.7 % (2.6-8.5); Neutrophils Percent Auto 64.4 % (45.5-73.1); Platelet Count Result 160 k/mm3 (150-375); Red Blood Count 3.99 M/mm3 (4.6-6.20); Red Cell Distribution Width 12.9 % (11.5-14.5); White Blood Count 9.3 K/mm3 (4.5-10.0)
[2022-09-13 06:43] LABS: Alanine Aminotransferase 17 U/L (6-50); Albumin Level 3.7 g/dL (3.5-5.1); Alkaline Phosphatase 63 U/L (38-126); Anion Gap 5 mmol/L (8-16); Aspartate Amino Transferase 15 U/L (17-59); Bilirubin,Total 0.4 mg/dL (0.2-1.3); Blood Urea Nitrogen 6 mg/dL (9-20); Calcium 8.2 mg/dL (8.4-10.2); Carbon Dioxide 28 mmol/L (22-30); Chloride 107 mmol/L (98-107); Estimated CRCL calculation 364 ml/min; Estimated Glomerular Filt Rate > 60; Glucose 91 mg/dL (65-110); Potassium 3.9 mmol/L (3.4-5.0); Sodium 140 mmol/L (137-145)
[2022-09-13 06:56] LABS: CRP 16.5 mg/dL (<1.0)
--- NOTE | 2022-09-13 07:40 | PM.DS ---
DS: Admitting Diagnosis Discharge Date 09/13/22 Admitting Diagnosis cellulitis DS: Discharge Diagnosis Discharge Diagnosis (1) Cellulitis of right leg: Code(s): L03.115 - Cellulitis of right lower limb Status: Acute Assessment and Plan: Started on Ancef in the ER, switched to vancomycin and Zosyn upon admission Will transition to vancomycin and Rocephin today Blood cultures from 09/10 pending, NGTD Leukocytosis improving, down to 15 today Elevated CRP, recheck much worse at 22.1, clinically improving however, PCT 1.4 concerning for sepsis, recheck CRP tomorrow Dopplers negative for DVT, x-ray negative for periosteal changes or abscess A1c 4.6, hyperglycemia likely 2/2 infection, monitor ABIs showed vascular disease on RLE, started on aspirin 325 mg daily and referred to vascular surgery, FLP ok, may need statin? defer to vascular management Abx de-escalated to doxy + cefdinir to complete a 14 day course (2) Epilepsy: Code(s): G40.909 - Epilepsy, unspecified, not intractable, without status epilepticus Status: Acute Assessment and Plan: Stable, continue home meds (3) Tobacco dependence: Code(s): F17.200 - Nicotine dependence, unspecified, uncomplicated Status: Acute Assessment and Plan: Nicotine patch as needed, smoking cessation strongly recommended due to vascular disease diagnosis (4) Morbid obesity with BMI of 60.0-69.9, adult: Code(s): E66.01 - Morbid (severe) obesity due to excess calories; Z68.44 - Body mass index [BMI] 60.0-69.9, adult Status: Acute Assessment and Plan: Diet and exercise modifications discussed and recommended (5) Hypertension: Code(s): I10 - Essential (primary) hypertension Status: Acute Assessment and Plan: due to elevated BP here and newly dx vascular disease, started on lisinopril 10 mg daily Plan DVT prophylaxis with Lovenox GI prophylaxis not indicated Code status full code DS: Summary Hospital Course Hospital Course: 31-year-old male with past medical history significant for morbid obesity, epilepsy, tobacco dependence is presenting with right lower extremity cellulitis. He was started on vancomycin and Ancef, this was transitioned to vancomycin and Rocephin. He was noted to be quite septic with an elevated procalcitonin CRP. After 3 days of IV antibiotics, leukocytosis improved, CRP and procalcitonin were trending down. The erythema had started to improve, but was slow to resolve. ABIs were checked and showed vascular disease of the right lower extremity. Of note he also had hypertension during his stay. Therefore, he was started on aspirin 325 mg, lisinopril 10 mg and referred to vascular surgery. Fasted lipid panel was checked and was within normal limits. He may still benefit from starting a statin due to his vascular disease, we will defer management for this to vascular surgery. He was discharged on cefdinir and doxycycline to complete a 14 day course of antibiotics with strict return precautions. A1c was also checked and was 4.6. Time Spent with Patient Time attestation: Total time spent providing and/or coordinating discharge services: Exam Narrative: General: No acute distress, alert and oriented per baseline HEENT: Atraumatic, normocephalic, mucous membranes moist CV: Regular rate and rhythm, S1, S2 Lungs: Clear to auscultation bilaterally, no rales or crackles noted, no wheezes, good air entry Abdomen: Soft, nontender, nondistended Extremities: Lacy erythema on right lower extremity, tibial surface, blanches, no petechiae, no open wounds Skin: No rashes noted, no lesions or wounds seen Psych: Euthymic, normal affect DS: Data Data Completed and Pending Labs on day of discharge: Labs from last 24 hours 09/13/22 09/13/22 09/13/22 05:57 05:57 05:57 WBC RBC Hgb Hct MCV MCH MCHC RDW Plt Count MPV Im
== END 2022-09-13 08:20 | disposition home or self-care (01) ==
LOC: ANHED 22:04 → ANH3MEDSUR 09-11 01:49
PROVIDERS: Family Medicine; Admitting Provider Internal Medicine; Emergency Provider Emergency Medicine; PCP Nurse Practitioner Family; Visit Provider Student in an Organized Health Care Education/Training Program
DX: L03.115 Cellulitis of right lower limb (principal); G40.909 Epilepsy, unspecified, not intractable, without status epilepticus; R05.9 Cough, unspecified; Z20.822 Contact with and (suspected) exposure to COVID-19; D72.829 Elevated white blood cell count, unspecified; R00.0 Tachycardia, unspecified; E66.01 Morbid (severe) obesity due to excess calories; Z68.44 Body mass index [BMI] 60.0-69.9, adult; F17.210 Nicotine dependence, cigarettes, uncomplicated; Z79.899 Other long term (current) drug therapy
CPT/HCPCS: 36415; 71045; 73590; 80048; 80053; 80061; 80202; 80307; 81001; 82565; 83036; 83605; 83690; 84145; 85025; 85610; 85730; 86140; 87040; 87636; 93005; 93922; 93971; 94640; 96361; 96365; 96366; 96367; 96372; 96374; 96375; 99285; A9270; G0378; G0379; J0690; J0696; J1650; J2543; J3370; J7030

== ENCOUNTER 2022-12-12 18:50 | Emergency (ER) | payer OTHER, SELFPAY ==
[2022-12-12] VITALS (12 sets, daily range): BP systolic 117–153; BP diastolic 58–87; PULSE 76–100; RESP 15–30; TEMP 36.6; O2SAT 93–100
--- NOTE | 2022-12-12 18:54 | ECG_ITS ---
Measurements Intervals [place] Rate: 85 P: 38 SD: 143 QRS: 34 QRSD: 108 T: 30 QT: 338 QTc: 404 Interpretive Statements SINUS RHYTHM INCOMPLETE RIGHT BUNDLE BRANCH BLOCK BORDERLINE ECG COMPARED TO ECG 09/10/2022 20:55:45 SINUS RHYTHM NOW PRESENT Electronically Signed On 12-13-2022 8:12:51 CDT by Merrick Del Cid D.O.
[2022-12-12 19:05] LABS: Basophils Percent Auto 0.5 % (0.2-1.2); Eosinophils Absolute Auto 0.1 K/mm3 (0-0.3); Eosinophils Percent Auto 0.8 % (0-4.4); Hematocrit 46.2 % (42.0-52.0); Hemoglobin 15.7 g/dL (14.0-18.0); Immature Granulocyte Absolute 0.05 K/mm3 (0.00-0.031); Immature Granulocyte Percent A 0.6 % (0-0.5); Lymphocytes Absolute Auto 1.37 K/mm3 (0.9-3.2); Lymphocytes Percent Auto 16.6 % (18.3-44.2); Mean Corpuscular Hemoglobin 30.7 pg (26-34); Mean Corpuscular Volume 90.4 fl (80-100); Mean Platelet Volume 10.1 fl (7.4-10.4); Monocytes Absolute Auto 0.4 K/mm3 (0.1-0.6); Monocytes Percent Auto 5.2 % (2.6-8.5); Neutrophils Absolute Auto 6.3 K/mm3 (1.3-6.7); Neutrophils Percent Auto 76.3 % (45.5-73.1); Platelet Count Result 211 k/mm3 (150-375); Red Blood Count 5.11 M/mm3 (4.6-6.20); Red Cell Distribution Width 12.5 % (11.5-14.5); White Blood Count 8.3 K/mm3 (4.5-10.0)
[2022-12-12 19:19] LABS: Alanine Aminotransferase 26 U/L (6-50); Albumin Level 4.5 g/dL (3.5-5.1); Alkaline Phosphatase 81 U/L (38-126); Anion Gap 7 mmol/L (8-16); Aspartate Amino Transferase 29 U/L (17-59); Bilirubin,Total 0.5 mg/dL (0.2-1.3); Blood Urea Nitrogen 7 mg/dL (9-20); Calcium 8.9 mg/dL (8.4-10.2); Carbon Dioxide 28 mmol/L (22-30); Chloride 105 mmol/L (98-107); Estimated CRCL calculation 271 ml/min; Estimated Glomerular Filt Rate > 60; Glucose 99 mg/dL (65-110); Potassium 4.2 mmol/L (3.4-5.0); Sodium 140 mmol/L (137-145)
[2022-12-12] MEDS: levETIRAcetam 1000MG/NACL100ML 1,000 MG/100 ML BAG 400 MG IVPB (19:19)
[2022-12-12 19:31] LABS: Creatine Kinase 61 U/L (55-170)
[2022-12-12] MEDS: PHENYTOIN SODIUM 100 MG EXTENDED RELEASE CAP 300 MG PO (19:42)
--- NOTE | 2022-12-12 19:42 | ED.SEIZURE ---
HPI - Seizure General Chief Complaint: Seizure Stated Complaint: SEIZURE Time Seen by Provider: 12/12/22 19:03 History of Present Illness HPI Narrative: This is a 32-year-old male with reported history of seizure disorder, who presents emergency department after seizure. The patient states he missed last night's dose of his Dilantin and Keppra as well as this afternoon's dose of his Dilantin. He denies any recent illness and has no other complaints today. Related Data Home Medications Medication Instructions Recorded Confirmed levetiracetam 750 mg tablet 1,500 mg PO BID 01/28/21 09/11/22 phenytoin sodium extended 300 mg 300 mg PO TID 09/11/22 09/11/22 capsule Allergies Allergy/AdvReac Type Severity Reaction Status Date / Time No Known Allergies Allergy Verified 12/12/22 19:58 Review of Systems Review of Systems: CONSTITUTIONAL: Denies fever, chills, or sweats. CARDIOVASCULAR: Denies chest pain, palpitations, or edema. RESPIRATORY: Denies cough or dyspnea. GASTROINTESTINAL: Denies abdominal pain, nausea, vomiting, or diarrhea. GENITOURINARY: Denies dysuria or hematuria. SKIN: Denies rash or itching. MUSCULOSKELETAL: Denies back pain, joint pain, or myalgia. NEUROLOGIC: Denies headache, numbness, dizziness, or weakness. PSYCHIATRIC: Denies anxiety or depression. [facility] Past Medical History Medical History Bronchitis Epilepsy Hypertension Surgical History Surgical History History of appendectomy History of plastic surgery Forehead from dog bite S/P tonsillectomy and adenoidectomy Family History Family History Mother Heart disease Father Malignant neoplasm of prostate Social History Social History Smoking status: Current every day smoker Tobacco type: cigarettes Substance use: never Lack of Transportation: No Lack of Food: Never True Current Housing: I Have Housing Concerned About Future Housing: No Difficulty Paying Gas/Electric Bills: No Difficulty Paying for Meds: No Currently Unemployed: No Education: High School Diploma/GED Difficulty w/ Childcare or Family Care: No Living arrangements: with family Gender identity (if verbalized by the patient): Male Spiritual care concerns: No Exam Narrative: GENERAL: Well-developed, well-nourished, and in no acute distress. Appears tired HEAD: Normocephalic, atraumatic. EYES: PERRLA and EOMI. ENT: Nares clear, no rhinorrhea or epistaxis. Mucous membranes moist. Oropharynx without tonsillar hypertrophy exudate or other lesions. CHEST: Clear to auscultation. No respiratory distress. No wheezes rales or rhonchi HEART: Regular rate and rhythm. No murmur heard. Normal peripheral pulses. ABDOMEN: Soft, nontender, nondistended, normal active bowel sounds. EXTREMITIES: Normal range of motion. No edema. SKIN: Warm, dry, no rash. NEURO: No focal deficits. Alert and oriented x3. Strength 5/5 in all extremities, sensation intact bilaterally, cranial nerves II through XII intact, no noted ataxia PSYCH: Normal mood and affect. Course Course Emergency Course: 19:47 - CBC unremarkable. Chemistries unremarkable. Lactic acid slightly elevated at 2.1, consistent with seizure. 20:45 - The patient was given Keppra and Dilantin, both of which she tolerated well. His significant other, who is at bedside states he is at his baseline. The patient feels comfortable with discharge. Discussed importance of regular use of his antiepileptic medications. Discussed return and emergency precautions including signs/symptoms of recurrent seizure and focal neurologic deficit. The patient voiced understanding and is comfortable with the plan. All questions answered to his satisfaction. Vital Signs Vital signs:
[2022-12-12 19:46] LABS: Lactic Acid Reflex 2.1 mmol/L (0.7-2.0)
[2022-12-12 22:32] LABS: Reflex Lactic Acid Yes or No Add Lactic
== END 2022-12-12 21:15 | disposition home or self-care (01) ==
PROVIDERS: Emergency Medicine; Emergency Provider Preventive Medicine Aerospace Medicine; PCP Nurse Practitioner Family
DX: G40.802 Other epilepsy, not intractable, without status epilepticus (principal); T42.0X6A Underdosing of hydantoin derivatives, initial encounter; T42.6X6A Underdosing of other antiepileptic and sedative-hypnotic drugs, initial encounter; I10 Essential (primary) hypertension; F17.210 Nicotine dependence, cigarettes, uncomplicated
CPT/HCPCS: 36415; 80053; 82550; 83605; 83735; 85025; 93005; 96365; 99284; A9270; J1953

== ENCOUNTER 2022-12-12 22:54 | Observation (INO) | payer OTHER, SELFPAY ==
--- NOTE | ~2022-12-12 | CT_ITS ---
EXAMINATION: CT brain wo con DATE: 12/12/2022 23:59 INDICATION: Seizure. Head injury. TECHNIQUE: Computed tomography (CT) of the head was performed without intravenous contrast. The mA wa s adjusted according to patient size. Iterative reconstruction technique was employed. The dose-lengt h product was 1059.33 mGy-cm. COMPARISON: None FINDINGS: There is no intracranial hemorrhage, acute infarction, or abnormal intracranial mass lesion . The ventricles are normal in size. There is mild mucosal thickening in the paranasal sinuses. The m astoid air cells are normal. The orbits are normal. IMPRESSION: 1. Normal brain. Reviewed, dictated and finalized at location A. IMPRESSION: 1. Normal brain.
--- NOTE | ~2022-12-12 | CT_ITS ---
EXAMINATION: CT cervical spine wo con DATE: 12/12/2022 23:59 INDICATION: Head injury. TECHNIQUE: Computed tomography (CT) of the cervical spine was performed without intravenous contrast. Automated exposure control and iterative reconstruction technique were employed. The dose-length pro duct was 820.26 mGy-cm. COMPARISON: None FINDINGS: There are groundglass opacities in left lung upper lobe. C1 ring is ununited posteriorly, a normal variant. There is 6 degrees dextrocurvature of cervical spine. Vertebral body heights are nor mal. There is mildly decreased disc height at C4-C5 and C6-C7. The following disc levels are specific ally discussed: C2-C3: There is mild bilateral uncovertebral joint osteoarthritis. There is mild bilateral facet join t osteoarthritis. There is mild right neural foraminal stenosis. There is no central canal stenosis. C3-C4: There is severe right uncovertebral joint osteoarthritis. There is mild bilateral facet joint osteoarthritis. There is moderate right neural foraminal stenosis. There is no central canal stenosis . C4-C5: There is mild bilateral uncovertebral joint osteoarthritis. There is mild right facet joint os teoarthritis. There is mild right neural foraminal stenosis. There is no central canal stenosis. C5-C6: There is mild bilateral uncovertebral joint osteoarthritis. There is no facet joint osteoarthr itis. There is no neural foraminal stenosis. There is mild central canal stenosis. C6-C7: There is no uncovertebral joint osteoarthritis. There is no facet joint osteoarthritis. There is no neural foraminal stenosis. There is no central canal stenosis. C7-T1: There is no uncovertebral joint osteoarthritis. There is mild bilateral facet joint osteoarthr itis. There is no neural foraminal stenosis. There is no central canal stenosis. IMPRESSION: 1. No fracture. 2. Mild cervical spondylosis. 3. Groundglass opacities in left lung upper lobe, consistent with pulmonary edema versus pneumonia. Reviewed, dictated and finalized at location A. IMPRESSION: 1. No fracture. 2. Mild cervical spondylosis. 3. Groundglass opacities in left lung upper lobe, consistent with pulmonary wade ma versus pneumonia.
[2022-12-12 22:56] VITALS: BP 173/98; PULSE 93; RESP 20; TEMP 36.8; O2SAT 94
[2022-12-12 23:12] VITALS: O2SAT 90
[2022-12-12 23:14] VITALS: BP 170/99; PULSE 90; RESP 31; TEMP 36.8; O2SAT 91
[2022-12-12 23:21] VITALS: O2SAT 95
--- NOTE | 2022-12-12 23:24 | PC.NURSE ---
Patient is sleeping and alert to voice.
--- NOTE | 2022-12-12 23:25 | PC.NURSE ---
Patient's girlfriend states that patient missed his Dilantin and Keppra medication last night.
[2022-12-12] MEDS: LORazepam INJ (*CRX) 2 MG/ML VIAL 1 MG IV PUSH (23:34)
--- NOTE | 2022-12-12 23:53 | ED.SEIZURE ---
HPI - Seizure General Chief Complaint: Seizure Stated Complaint: Seizure Time Seen by Provider: 12/12/22 22:58 History of Present Illness HPI Narrative: This is a 32-year-old male, who returns to the emergency department by EMS after a reported seizure. The patient was seen earlier in the emergency department for seizure and given Keppra and Dilantin. At the time he was neurologically intact and had no recurrent seizure-like symptoms. The patient's significant other, who is at bedside notes he was sitting on a porch, smoking cigarette, when he fell backwards, reportedly striking his head on the ground and having seizure-like convulsions for an unknown period of time. Related Data Home Medications Medication Instructions Recorded Confirmed levetiracetam 750 mg tablet 1,500 mg PO BID 01/28/21 12/13/22 Allergies Allergy/AdvReac Type Severity Reaction Status Date / Time No Known Allergies Allergy Verified 12/12/22 19:58 Review of Systems Review of Systems: Review of systems limited due to patient's altered mental status PMFSH Past Medical History Medical History (Updated 12/13/22 @ 02:45 by Krysten Zeng DO) Bronchitis Epilepsy Essential hypertension Hypertension Morbid obesity with body mass index (BMI) greater than or equal to 50 Surgical History Surgical History History of appendectomy History of plastic surgery Forehead from dog bite S/P tonsillectomy and adenoidectomy Family History Family History (Updated 12/13/22 @ 03:04 by Jazmyn Martinez RN) Mother Heart disease Father Malignant neoplasm of prostate Sibling Epilepsy Social History Social History Smoking packs per day: 1.5 Smoking cigarettes per day: 30.0 Smoking status: Current every day smoker Tobacco type: cigarettes Alcohol intake: never Substance use: current Substance use type: marijuana Lack of Transportation: No Lack of Food: Never True Current Housing: I Have Housing Concerned About Future Housing: No Difficulty Paying Gas/Electric Bills: No Difficulty Paying for Meds: No Currently Unemployed: No Education: High School Diploma/GED Difficulty w/ Childcare or Family Care: No Living arrangements: with family Gender identity (if verbalized by the patient): Male Spiritual care concerns: No Exam Narrative: GENERAL: Well-developed, well-nourished, and in no acute distress. Slow to answer questions HEAD: Normocephalic, atraumatic. EYES: PERRLA and EOMI. ENT: Nares clear, no rhinorrhea or epistaxis. Mucous membranes moist. Oropharynx without tonsillar hypertrophy exudate or other lesions. NECK: Supple. No adenopathy or masses. No carotid bruits or JVD. No midline spine tenderness to palpation, no step-off or crepitus CHEST: Clear to auscultation. No respiratory distress. No wheezes rales or rhonchi HEART: Regular rate and rhythm. No murmur heard. Normal peripheral pulses. ABDOMEN: Soft, nontender, nondistended, normal active bowel sounds. EXTREMITIES: Normal range of motion. No edema. SKIN: Warm, dry, no rash. NEURO: Slow to answer questions, though does so appropriately. No focal deficits. Alert and oriented x2. Strength 5/5 in all extremities, sensation intact bilaterally, cranial nerves II through XII intact PSYCH: Normal mood and affect. Course Course Emergency Course: 00:20 - STAT Rad interpretation of CT head negative for acute intracranial abnormality. CT cervical spine negative for fracture or dislocation. Lactic acid 2.5. Chemistries otherwise unremarkable. Serum phenytoin level subtherapeutic at 7. Paged neurologist for consultation with plan for loading dose of phenytoin and observation. Patient remains lethargic though follows commands, I suspect this is due to the 1 mg of Ativan given. 01:27 - Discussed patient with neurologist, Dr. Goran santana
[2022-12-12 23:58] LABS: Lactic Acid Reflex 2.5 mmol/L (0.7-2.0)
[2022-12-13] VITALS (17 sets, daily range): BP systolic 110–146; BP diastolic 52–88; PULSE 56–83; RESP 16–27; TEMP 36.4–37; O2SAT 96–100; BMI 59.5
[2022-12-13 00:01] LABS: Alanine Aminotransferase 23 U/L (6-50); Albumin Level 4.1 g/dL (3.5-5.1); Alkaline Phosphatase 75 U/L (38-126); Anion Gap 5 mmol/L (8-16); Aspartate Amino Transferase 26 U/L (17-59); Bilirubin,Total 0.4 mg/dL (0.2-1.3); Blood Urea Nitrogen 7 mg/dL (9-20); Calcium 8.6 mg/dL (8.4-10.2); Carbon Dioxide 31 mmol/L (22-30); Chloride 105 mmol/L (98-107); Creatine Kinase 49 U/L (55-170); Estimated CRCL calculation 233 ml/min; Estimated Glomerular Filt Rate > 60; Glucose 100 mg/dL (65-110); Phenytoin Dilantin 7 ug/mL (10-20); Potassium 3.9 mmol/L (3.4-5.0); Sodium 141 mmol/L (137-145)
[2022-12-13] MEDS: LACTATED RINGERS 1,000 ML 999 ML IV CONT (01:04)
--- NOTE | 2022-12-13 02:20 | ADMGEN ---
This patient, Lukas German, was admitted to Medical Room 347-. Patient/family oriented to hospital policies and general routines including ID bracelet, bed and alarms, visiting hours, pain management, procedures, bathroom and other care routines, personal items, smoking policy, room service/diet, and visiting hours. Information on how to activate the Rapid Response Team has been discussed. Patient/Family are encouraged to report perceived risks to care and to ask questions if they do not understand what they are told or what they should do.
--- NOTE | 2022-12-13 02:39 | PM.IMHP ---
H&P: HPI History of Present Illness Date/Time: 12/13/22 02:39 Chief Complaint: Breakthrough seizure Narrative: 32-year-old male with a past medical history of morbid obesity, essential hypertension and seizure disorder who presented to the ER with breakthrough seizure. The patient initially presented to the ER on the after having an seizure in the car. EMS was called and the patient was brought to the ER. The patient confessed at that time that he had missed 2 doses of his phenytoin in at least 1 dose of his Keppra. He was given a loading dose of Keppra in the ER and was given an oral dose of phenytoin. He then went home and smoked a joint. He then took a nap. When he got up from his nap he went outside to smoke a cigarette. When he finished smoking he stood up and began shaking. He fell to the ground and hit back of his head. He had a 30 second seizure. The patient had been incontinent of urine for EMS. Patient has no evidence of infection or fever. A phenytoin level was obtained and was found to be low. The patient does have a history of phenytoin toxicity in March of 2022. He has received 1 dose of IV Ativan in the ER to hopefully prevent recurrent seizure. A 1.5 g dose of phenytoin was ordered in the ER but evidently patient did not receive this until after he arrived on the medical floor. The patient has not had a seizure since admission. However the patient were remains extremely somnolent. He is noted to have snoring respirations. His girlfriend told nursing staff that the patient does have sleep apnea but he has not bothered to follow up to get the CPAP. The patient also was diagnosed with right leg peripheral vascular when he was admitted to the hospital in August with cellulitis. He was referred to a vascular surgeon as outpatient but the patient has failed to follow-up. The patient was started on full-dose aspirin at that time. The patient mumbled his name at the time of my evaluation and stated that he was in the hospital but did not answer any other questions. Review of Systems Review of Systems: ROS unobtainable: Yes unobtainable due to medical condition (Postictal state) [facility] Past Medical History Medical History (Updated 12/13/22 @ 06:29 by Krysten Zeng DO) Bronchitis Epilepsy Essential hypertension Hypertension Morbid obesity with body mass index (BMI) greater than or equal to 50 Surgical History Surgical History History of appendectomy History of plastic surgery Forehead from dog bite S/P tonsillectomy and adenoidectomy Family History Family History Mother Heart disease Father Malignant neoplasm of prostate Sibling Epilepsy Social History Social History (Updated 12/13/22 @ 06:21 by Krysten Zeng DO) Social History: The patient is legal address is with his mother. However girlfriend states that the patient states that her house more than half the time due to the number of stairs at his mother's house. The patient smokes 1.5 packs of cigarettes per day since he was a teenager. His girlfriend reports the patient does not use alcohol. He smokes marijuana somewhat frequently. Code status: Full code Patient does not have advanced directives in place. Smoking packs per day: 1.5 Smoking cigarettes per day: 30.0 Smoking status: Current every day smoker Tobacco type: cigarettes Alcohol intake: never Substance use: current Substance use type: marijuana Lack of Transportation: No Lack of Food: Never True Current Housing: I Have Housing Concerned About Future Housing: No Difficulty Paying Gas/Electric Bills: No Difficulty Paying for Meds: No Currently Unemployed: No Education: High School Diploma/GED Difficulty w/ Childcare or Family Care: No Living arrangements: with family Gender identity (if verbalized by the patient):
[2022-12-13] MEDS: SODIUM CHLORIDE 0.9% IV 1,000 ML 100 ML (03:29)
[2022-12-13] MEDS: levETIRAcetam 500 MG TABLET 1500 MG PO ×2 (08:14→17:09)
[2022-12-13] MEDS: PHENYTOIN SODIUM 100 MG EXTENDED RELEASE CAP 300 MG PO ×3 (08:14→17:09)
[2022-12-13] MEDS: lisinopriL 10 MG TABLET PO (08:14)
[2022-12-13] MEDS: ENOXAPARIN 40 MG/0.4 ML SYRINGE SUB-Q ×2 (08:15→21:15)
[2022-12-13] MEDS: NICOTINE (*PBKC) 21 MG PATCH 1 PATCH TRANSDERM (08:15)
[2022-12-13] MEDS: ASPIRIN 325 MG TABLET PO (08:15)
--- NOTE | 2022-12-13 14:18 | PM.DS ---
DS: Admitting Diagnosis Discharge Date 12/13/22 Admitting Diagnosis Seizure DS: Discharge Diagnosis Discharge Diagnosis (1) Breakthrough seizure: Code(s): G40.919 - Epilepsy, unspecified, intractable, without status epilepticus Status: Acute (2) Nonadherence to medication: Code(s): Z91.148 - Patient's other noncompliance with medication regimen for other reason Status: Acute (3) Morbid obesity with body mass index (BMI) greater than or equal to 50: Code(s): E66.01 - Morbid (severe) obesity due to excess calories Status: Acute (4) Lactic acidosis: Code(s): E87.20 - Acidosis, unspecified Status: Acute (5) Postictal state: Code(s): R56.9 - Unspecified convulsions Status: Acute DS: Summary Hospital Course Hospital Course: This is a 32-year-old male with past medical history of morbid obesity, hypertension and seizure disorder who presents to the ED on 12/12/2022 due to having witnessed seizure. Patient had missed 2 doses of his phenytoin and at least 1 dose of his Keppra. Patient was given loading dose of Keppra in the ER and oral Phenytoin. Patient had fallen to the ground hit his head. CT head no acute intracranial process. phenytoin level found to be low. Patient was given 1 dose of IV Ativan in the ER. Patient has not had seizure during admission. Patient was noted to have snoring respirations. His girlfriend told nursing staff that the patient does have sleep apnea but he has not bothered to follow up to get the CPAP.? The patient also was diagnosed with right leg peripheral vascular when he was admitted to the hospital in August with cellulitis.? He was referred to a vascular surgeon as outpatient but the patient has failed to follow-up.? The patient was started on full-dose aspirin at that time. Neurology consulted. Spoke with neurologist and he would like patient to increase his Keppra to 1000 mg twice a day. He would like patient to decrease his phenytoin to 300 mg daily. Neurologist believes that patient is not compliant due to the dosage of his phenytoin. He is recommending an increase in Keppra and a decrease and phenytoin. He would also like patient to follow-up in the office and call within the week for an update of his condition. On day of discharge patient is alert and oriented x4 and is vocal on his want to be discharged. His labs and vital signs are stable and he is medically cleared for discharge. Time Spent with Patient Time attestation: Total time spent providing and/or coordinating discharge services: Exam Narrative: GENERAL: Comfortable, no acute distress HENMT: moist mucous membranes EYES: EOM intact b/l NECK: no lymphadenopathy RESPIRATORY: clear to auscultation CARDIO: RRR GI: soft, nontender, bowel sounds present SKIN: no rashes EXTREMITIES: no edema, redness or tenderness DS: Data Data Completed and Pending Labs on day of discharge: Labs from last 24 hours 12/12/22 23:41 Sodium 141 Potassium 3.9 Chloride 105 Carbon Dioxide 31 H Anion Gap 5 L BUN 7 L Creatinine 0.60 L Estim Creat Clear Calc 233 Estimated GFR > 60 Glucose 100 Lactic Acid 2.5 H Calcium 8.6 Total Bilirubin 0.4 AST 26 ALT 23 Alkaline Phosphatase 75 Total Creatine Kinase 49 L Total Protein 7.0 Albumin 4.1 Phenytoin 7 L Discharge Plan Discharge Attending physician on discharge: Eric Campos Consulting providers: Stephanie Zimmer Discharging Clinician: Lilliana Farris Patient Disposition: Home, Self-Care Activity: other - see discharge instructions Diet: regular Discharge Instructions: Medications: Keppra 2000 mg twice daily Phenytoin 300 mg daily Please follow up with sleep study for CPAP Follow up with vascular surgery due to peripheral vascular disease. Activities: Avoid hazardous activities such as mild climbing or scuba diving. Seizure under these conditions could lead to
[2022-12-14 05:01] VITALS: BP 139/76; PULSE 67; RESP 20; TEMP 37.2; O2SAT 95
[2022-12-14 06:49] LABS: Basophils Percent Auto 0.3 % (0.2-1.2); Eosinophils Absolute Auto 0.2 K/mm3 (0-0.3); Eosinophils Percent Auto 1.6 % (0-4.4); Hematocrit 44.5 % (42.0-52.0); Hemoglobin 14.7 g/dL (14.0-18.0); Immature Granulocyte Absolute 0.05 K/mm3 (0.00-0.031); Immature Granulocyte Percent A 0.5 % (0-0.5); Lymphocytes Absolute Auto 2.84 K/mm3 (0.9-3.2); Lymphocytes Percent Auto 28.1 % (18.3-44.2); Mean Corpuscular Hemoglobin 30.4 pg (26-34); Mean Corpuscular Volume 91.9 fl (80-100); Mean Platelet Volume 10.4 fl (7.4-10.4); Monocytes Absolute Auto 0.7 K/mm3 (0.1-0.6); Monocytes Percent Auto 6.7 % (2.6-8.5); Neutrophils Absolute Auto 6.4 K/mm3 (1.3-6.7); Neutrophils Percent Auto 62.8 % (45.5-73.1); Platelet Count Result 215 k/mm3 (150-375); Red Blood Count 4.84 M/mm3 (4.6-6.20); Red Cell Distribution Width 12.5 % (11.5-14.5); White Blood Count 10.1 K/mm3 (4.5-10.0)
[2022-12-14 07:07] LABS: Anion Gap 4 mmol/L (8-16); Blood Urea Nitrogen 10 mg/dL (9-20); Calcium 8.7 mg/dL (8.4-10.2); Carbon Dioxide 26 mmol/L (22-30); Chloride 110 mmol/L (98-107); Estimated CRCL calculation 238 ml/min; Estimated Glomerular Filt Rate > 60; Glucose 86 mg/dL (65-110); Potassium 4.3 mmol/L (3.4-5.0); Sodium 140 mmol/L (137-145)
[2022-12-14] MEDS: levETIRAcetam 500 MG TABLET 2000 MG PO (09:50)
[2022-12-14] MEDS: PHENYTOIN SODIUM 100 MG EXTENDED RELEASE CAP 300 MG PO (09:50)
[2022-12-14] MEDS: ASPIRIN 325 MG TABLET PO (09:51)
[2022-12-14] MEDS: lisinopriL 10 MG TABLET PO (09:51)
[2022-12-14] MEDS: ENOXAPARIN 40 MG/0.4 ML SYRINGE SUB-Q (09:52)
--- NOTE | 2022-12-14 10:46 | PM.DS ---
DS: Admitting Diagnosis Discharge Date 12/14/22 Admitting Diagnosis seizures DS: Discharge Diagnosis Discharge Diagnosis (1) Breakthrough seizure: Code(s): G40.919 - Epilepsy, unspecified, intractable, without status epilepticus Status: Acute (2) Nonadherence to medication: Code(s): Z91.148 - Patient's other noncompliance with medication regimen for other reason Status: Acute (3) Morbid obesity with body mass index (BMI) greater than or equal to 50: Code(s): E66.01 - Morbid (severe) obesity due to excess calories Status: Acute (4) Lactic acidosis: Code(s): E87.20 - Acidosis, unspecified Status: Acute (5) Postictal state: Code(s): R56.9 - Unspecified convulsions Status: Acute DS: Summary Hospital Course Hospital Course: This is a 32-year-old male with past medical history of morbid obesity, hypertension and seizure disorder who presents to the ED on? 12/12/2022 due to having witnessed seizure.? Patient had missed 2 doses of his phenytoin and at least 1 dose of his Keppra.? Patient was given loading dose of Keppra in the ER and oral? Phenytoin.? Patient had fallen to the ground hit his head.? CT head? no acute intracranial process.? phenytoin level found to be low.? Patient was given 1 dose of IV Ativan in the ER.? Patient has not had seizure during admission.? Patient was noted to have snoring respirations. His girlfriend told nursing staff that the patient does have sleep apnea but he has not bothered to follow up to get the CPAP.? The patient also was diagnosed with right leg peripheral vascular when he was admitted to the hospital in August with cellulitis.? He was referred to a vascular surgeon as outpatient but the patient has failed to follow-up.? The patient was started on full-dose aspirin at that time.? Neurology consulted.? Spoke with neurologist and he would like patient to increase his Keppra to 2000 mg twice a day.? He would like patient to decrease his phenytoin to 300 mg daily.? Neurologist believes that patient is not compliant due to the dosage of his phenytoin.? He is recommending an increase in Keppra and a decrease and phenytoin.? He would also like patient to follow-up in the office and call within the week for an update of his condition.? patient up staying 1 extra night due to increased lethargy. The next day patient was much improved and walking all around without difficulty. On day of discharge patient is alert and oriented x4 and is vocal on his want to be discharged.? His labs and vital signs are stable and he is medically cleared for discharge. Time Spent with Patient Time attestation: Total time spent providing and/or coordinating discharge services: Exam Narrative: GENERAL: Comfortable, no acute distress HENMT: moist mucous membranes EYES: EOM intact b/l NECK: no lymphadenopathy RESPIRATORY: clear to auscultation CARDIO: RRR GI: soft, nontender, bowel sounds present SKIN: no rashes EXTREMITIES: no edema, redness or tenderness DS: Data Data Completed and Pending Labs on day of discharge: Labs from last 24 hours 12/14/22 06:40 WBC 10.1 H RBC 4.84 Hgb 14.7 Hct 44.5 MCV 91.9 MCH 30.4 MCHC 33.0 RDW 12.5 Plt Count 215 MPV 10.4 Immature Gran % (Auto) 0.5 Neut % (Auto) 62.8 Lymph % (Auto) 28.1 [place] % (Auto) 6.7 Eos % (Auto) 1.6 Baso % (Auto) 0.3 Lymph # (Auto) 2.84 [place] # (Auto) 0.7 H Eos # (Auto) 0.2 Baso # (Auto) 0.0 Abs Immat Gran (auto) 0.05 H Absolute Neuts (auto) 6.4 Absolute Nucleated RBC 0.0 Nucleated RBC % 0.0 Sodium 140 Potassium 4.3 Chloride 110 H Carbon Dioxide 26 Anion Gap 4 L BUN 10 Creatinine 0.60 L Estim Creat Clear Calc 238 Estimated GFR > 60 Glucose 86 Calcium 8.7 Discharge Plan Discharge Attending physician on discharge: Eric Campos Consulting providers: Stephanie Zimmer Discharging Clinician: Lilliana Farris Patient Dispositio
== END 2022-12-14 11:35 | disposition home or self-care (01) ==
LOC: ANHED 12-13 01:35 → ANH3MED 12-13 02:26
PROVIDERS: Admitting Provider Internal Medicine; Emergency Provider Preventive Medicine Aerospace Medicine; PCP Nurse Practitioner Family; Visit Provider Internal Medicine
DX: G40.919 Epilepsy, unspecified, intractable, without status epilepticus (principal); Z91.148 Patient's other noncompliance with medication regimen for other reason; E66.01 Morbid (severe) obesity due to excess calories; E87.20 Acidosis, unspecified; I10 Essential (primary) hypertension; I73.9 Peripheral vascular disease, unspecified; G47.30 Sleep apnea, unspecified; M47.812 Spondylosis without myelopathy or radiculopathy, cervical region; R91.8 Other nonspecific abnormal finding of lung field; Z68.43 Body mass index [BMI] 50.0-59.9, adult; F12.90 Cannabis use, unspecified, uncomplicated; F17.210 Nicotine dependence, cigarettes, uncomplicated; Z79.899 Other long term (current) drug therapy; Z82.0 Family history of epilepsy and other diseases of the nervous system
CPT/HCPCS: 36415; 70450; 72125; 80048; 80053; 80185; 82550; 83605; 83735; 85025; 93005; 96361; 96365; 96372; 96374; 96375; 99285; A9270; G0378; G0379; J1165; J1650; J1953; J2060; J7030; J7120

== ENCOUNTER 2023-01-11 12:28 | Emergency (ER) | payer OTHER, SELFPAY ==
[2023-01-11 13:00] VITALS: BP 138/88; PULSE 72; RESP 20; TEMP 36.7; O2SAT 98
--- NOTE | 2023-01-11 13:09 | ED.GENADULT ---
HPI - General Adult General Chief complaint: Skin/Abscess/Foreign Body Stated complaint: Urinary Problem Source: patient Mode of arrival: ambulatory Limitations: no limitations History of Present Illness HPI narrative: PATIENT PRESENTS FOR EVALUATION OF DYSURIA. SYMPTOM ONSET LAST NIGHT. HE HAS HAD URINARY TRACT INFECTIONS IN THE PAST AND THIS FEELS SIMILAR, ALTHOUGH NOT SEVERE. NO FEVER, CHILLS, NAUSEA, VOMITING, ABDOMINAL PAIN. HE HAS SOME MILD LEFT-SIDED LOW BACK PAIN BUT THINKS IT IS MUSCULOSKELETAL IN ORIGIN RELATED TO HIS WORK. NO HISTORY OF KIDNEY STONES. DENIES URETHRAL DISCHARGE. HE IS IN A SEXUALLY MONOGAMOUS RELATIONSHIP WITH A FEMALE PARTNER. SHE CURRENTLY HAS A UTI BUT DENIES ANY VAGINAL DISCHARGE. BOTH HE AND HIS FEMALE PARTNER DENIES ANY HISTORY OF STI OF SUSPICION THAT HE HAS ONE AT PRESENT TIME. HE STATES HIS CURRENT SYMPTOMS ARE MILD. DENIES ANY OTHER SYMPTOMS. Related Data Home Medications Medication Instructions Recorded Confirmed phenytoin sodium extended 300 mg 300 mg PO TID 01/11/23 01/11/23 capsule Allergies Allergy/AdvReac Type Severity Reaction Status Date / Time No Known Allergies Allergy Verified 01/11/23 12:52 Review of Systems Review of Systems: CONSTITUTIONAL: DENIES FEVER, CHILLS, OR SWEATS. EYES: DENIES VISUAL CHANGES, REDNESS, OR DISCHARGE. ENT: DENIES RHINORRHEA, CONGESTION, SORE THROAT, OR OTALGIA. CARDIOVASCULAR: DENIES CHEST PAIN, PALPITATIONS, OR EDEMA. RESPIRATORY: DENIES COUGH OR DYSPNEA. GASTROINTESTINAL: DENIES ABDOMINAL PAIN, NAUSEA, VOMITING, OR DIARRHEA. GENITOURINARY: REPORTS DYSURIA. DENIES HEMATURIA, URGENCY, HESITANCY AND FREQUENCY. SKIN: REPORTS RASH WITH ASSOCIATED PRURITIS TO ABDOMEN AND GROIN MUSCULOSKELETAL: DENIES BACK PAIN, JOINT PAIN, OR MYALGIA. NEUROLOGIC: DENIES HEADACHE, NUMBNESS, DIZZINESS, OR WEAKNESS. PSYCHIATRIC: DENIES ANXIETY OR DEPRESSION. [facility] Past Medical History Medical History Bronchitis Epilepsy Essential hypertension Hypertension Morbid obesity with body mass index (BMI) greater than or equal to 50 Surgical History Surgical History History of appendectomy History of plastic surgery Forehead from dog bite S/P tonsillectomy and adenoidectomy Family History Family History Mother Heart disease Father Malignant neoplasm of prostate Sibling Epilepsy Social History Social History Social History: The patient is legal address is with his mother. However girlfriend states that the patient states that her house more than half the time due to the number of stairs at his mother's house. The patient smokes 1.5 packs of cigarettes per day since he was a teenager. His girlfriend reports the patient does not use alcohol. He smokes marijuana somewhat frequently. Code status: Full code Patient does not have advanced directives in place. Smoking packs per day: 1.5 Smoking cigarettes per day: 30.0 Smoking status: Current every day smoker Tobacco type: cigarettes Alcohol intake: never Substance use: current Substance use type: marijuana Lack of Transportation: No Lack of Food: Never True Current Housing: I Have Housing Concerned About Future Housing: No Difficulty Paying Gas/Electric Bills: No Difficulty Paying for Meds: No Currently Unemployed: No Education: High School Diploma/GED Difficulty w/ Childcare or Family Care: No Living arrangements: with family Gender identity (if verbalized by the patient): Male Spiritual care concerns: No Exam Narrative: GENERAL: WELL-APPEARING, WELL-NOURISHED, AND IN NO ACUTE DISTRESS. HEAD: NORMOCEPHALIC, ATRAUMATIC. EYES: PERRLA AND EOMI. ENT: NARES CLEAR, NO RHINORRHEA OR EPISTAXIS. MUCOUS ME
== END 2023-01-11 13:35 | disposition home or self-care (01) ==
PROVIDERS: Emergency Provider Nurse Practitioner; PCP Nurse Practitioner Family
DX: B37.2 Candidiasis of skin and nail (principal); R30.0 Dysuria; R31.29 Other microscopic hematuria; F17.210 Nicotine dependence, cigarettes, uncomplicated; F12.90 Cannabis use, unspecified, uncomplicated; G40.909 Epilepsy, unspecified, not intractable, without status epilepticus; I10 Essential (primary) hypertension; E66.01 Morbid (severe) obesity due to excess calories; Z68.44 Body mass index [BMI] 60.0-69.9, adult
CPT/HCPCS: 81003; 99213; G0463

== ENCOUNTER 2023-01-11 22:20 | Emergency (ER) | payer OTHER, SELFPAY ==
[2023-01-11 22:34] VITALS: BP 145/90; PULSE 81; RESP 22; TEMP 36.3; O2SAT 97
[2023-01-11 22:56] LABS: Appearance Urine Turbid (Clear); Bacteria Urine None Seen /hpf; Bilirubin Urine Negative (Negative); Blood Urine Negative (Negative); Color Urine Yellow (Yellow); Glucose Urine UA Negative (Negative); Ketones Urine Negative (Negative); Leukocyte Esterase Ur Negative LEU/UL (Negative); Nitrate Urine Negative (Negative); Non Pathogenic Casts 0-2; Protein Urine Negative (Negative); RBC Urine 0-2 /hpf (0-2); Specific Grav Ur 1.023 (1.001-1.035); Squamous Epithelial Cell Urine Occasional /hpf (Few); WBC Urine 0-5 /hpf; pH Urine 7.5 (5.0-9.0)
[2023-01-11 23:09] LABS: Add Urine Microscopic? YES
--- NOTE | 2023-01-11 23:09 | ED.MALEGU ---
HPI - Male Genitourinary General Chief complaint: Urogenital-Male <Nuvia Allan PA-C - Last Filed: 01/12/23 01:46> Stated complaint: urinary symptoms <Nuvia Allan PA-C - Last Filed: 01/12/23 01:46> Time Seen by Provider: 01/11/23 22:55 <Nuvia Allan PA-C - Last Filed: 01/12/23 01:46> History of Present Illness HPI Narrative: Patient is a 32-year-old male with history of epilepsy here for evaluation of dysuria x2 days. Reports his symptoms are mild and not present with every void. He denies any testicular pain, abdominal pain, back pain, fevers, chills, nausea or vomiting. Seen in urgent care today and was told he had trace blood in his urine and thought that he might be passing a kidney stone. He is concerned that he was not treated for infection because of his history of epilepsy. He was indeed sent home with ketoconazole for suspected fungal infection of the skin. Patient has no concerns for STIs or STDs and is in a monogamous relationship with 1 female. <ELISABET Marmolejo Last Filed: 01/12/23 01:46> Related Data Home medications: Home Medications Medication Instructions Recorded Confirmed phenytoin sodium extended 300 mg 300 mg PO TID 01/11/23 01/11/23 capsule <ELISABET Marmolejo Last Filed: 01/12/23 01:46> Allergies/Adverse reactions: Allergies Allergy/AdvReac Type Severity Reaction Status Date / Time No Known Allergies Allergy Verified 01/11/23 12:52 <ELISABET Marmolejo Last Filed: 01/12/23 01:46> Review of Systems Review of Systems: Gen.: Denies fevers or chills Eyes: Denies eye pain or visual change ENT: Denies congestion Respiratory: Denies shortness of breath or cough CV: Denies chest pain or palpitations GI: Denies abdominal pain nausea, emesis or diarrhea reports burning Musculoskeletal: Denies back pain or muscle pain Neuro: Denies numbness, tingling, weakness or focal weakness Skin: Denies rash Except as documented, all other systems reviewed and negative <Nuvia Allan PA-C - Last Filed: 01/12/23 01:46> [facility] Past Medical History Medical History: Medical History Bronchitis Epilepsy Essential hypertension Hypertension Morbid obesity with body mass index (BMI) greater than or equal to 50 <Nuvia Allan PA-C - Last Filed: 01/12/23 01:46> Surgical History Surgical History: Surgical History History of appendectomy History of plastic surgery Forehead from dog bite S/P tonsillectomy and adenoidectomy <Nuvia Allan PA-C - Last Filed: 01/12/23 01:46> Family History Family History: Family History Mother Heart disease Father Malignant neoplasm of prostate Sibling Epilepsy <Nuvia Allan PA-C - Last Filed: 01/12/23 01:46> Social History Social History: Social History Social History: The patient is legal address is with his mother. However girlfriend states that the patient states that her house more than half the time due to the number of stairs at his mother's house. The patient smokes 1.5 packs of cigarettes per day since he was a teenager. His girlfriend reports the patient does not use alcohol. He smokes marijuana somewhat frequently. Code status: Full code Patient does not have advanced directives in place. Smoking packs per day: 1.5 Smoking cigarettes per day: 30.0 Smoking status: Current every day smoker Tobacco type: cigarettes Alcohol intake: never Substance use: current Substance use type: marijuana Lack of Transportation: No Lack of Food: Never True Current Housing: I Have Housing Concerned About Future Housing: No Difficulty Payi
== END 2023-01-12 00:30 | disposition home or self-care (01) ==
PROVIDERS: Emergency Medicine; Emergency Provider Physician Assistant; PCP Nurse Practitioner Family
DX: R30.0 Dysuria (principal); B37.2 Candidiasis of skin and nail; G40.909 Epilepsy, unspecified, not intractable, without status epilepticus; I10 Essential (primary) hypertension; E66.01 Morbid (severe) obesity due to excess calories; Z68.44 Body mass index [BMI] 60.0-69.9, adult; F17.210 Nicotine dependence, cigarettes, uncomplicated
CPT/HCPCS: 81001; 81003; 87486; 87491; 87591; 87661; 99283

== ENCOUNTER 2023-07-21 10:33 | Emergency (ER) | payer SELFPAY ==
--- NOTE | ~2023-07-21 | CT_ITS ---
EXAMINATION: CT abdomen pelvis w con DATE: 07/21/2023 15:39 INDICATION: Right-sided abdominal pain TECHNIQUE: Computed tomography (CT) of the abdomen and pelvis was performed with 100 mL Omnipaque-350 intravenous contrast. Automated exposure control and iterative reconstruction technique were employe d. The dose-length product was 1681.87 mGy-cm. COMPARISON: None FINDINGS: Lung bases are clear. Heart size is normal. No pericardial or pleural effusion. Liver, gallbladder, s pleen, pancreas, bilateral adrenal glands and kidneys are normal. There appears be a suture line chas g the tip the cecum suggesting prior appendectomy. There is a 4.5 cm long thin linear density within a loop of distal ileum in the right lower quadrant with some surrounding inflammatory stranding. Thi s suggests an ingested foreign body. No evident abscess or free intraperitoneal gas or fluid. No jeevan l obstruction. Small fat-containing umbilical hernia. Bladder is normal. No pathologically enlarged a bdominal or pelvic lymphadenopathy. Mild lumbar and lower thoracic spondylosis. IMPRESSION: 1. 4.5 cm long thin linear likely ingested foreign body in the distal ileum with mild surrounding inf lammatory stranding but no evident abscess or free intraperitoneal gas or fluid. Correlate with clini nayla history. If clinically indicated KUB might be helpful to better deduce the diffuse the identity o f the foreign body. Reviewed, dictated and finalized at location A. F RESPIRATORY THERAPIST IMPRESSION: 1. 4.5 cm long thin linear likely ingested foreign body in the distal ileum wit h mild surrounding inflammatory stranding but no evident abscess or free intrap eritoneal gas or fluid. Correlate with clinical history. If clinically indicate d KUB might be helpful to better deduce the diffuse the identity of the foreign body.
--- NOTE | ~2023-07-21 | XR_ITS ---
XR abdomen/kub 1V DATE: 07/21/2023 17:01 INDICATION: Likely foreign body reported on CT abdomen pelvis examination today TECHNIQUE: 3 views of the abdomen COMPARISON: 07/21/2023 CT abdomen pelvis FINDINGS: There is bilateral excretion of contrast material by the kidneys with no evidence of hydron ephrosis. The renal collecting systems and urinary bladder appear normal. No evidence of bowel obstruction. The psoas shadows are intact. No visceromegaly is noted. No radiopaque foreign body is identified in the right lower quadrant in the distal ileal area. IMPRESSION: No radiographically detected radiopaque foreign body Reviewed, dictated and finalized at [facility]. Reviewed, dictated and finalized at location L. ILLUSTRATOR
[2023-07-21 10:46] VITALS: BP 159/88; PULSE 91; RESP 16; TEMP 36.2; O2SAT 98
--- NOTE | 2023-07-21 14:11 | ED.ABDPAIN ---
HPI - Abdominal Pain General Chief Complaint: Abdominal Pain Stated Complaint: righ side pain Time Seen by Provider: 07/21/23 14:11 Source: patient Mode of arrival: ambulatory Limitations: no limitations History of Present Illness HPI narrative: RIGHT LOWER QUADRANT PAIN STARTED LAST NIGHT AT WORK. PATIENT WORKS IN A [employer], WITH A LOT OF PHYSICAL WORK. PAIN WAS INTERMITTENT, WORSE WITH CERTAIN MOVEMENT, BETTER AT REST, WORKUP THIS MORNING WAS MORE PAIN, COULD NOT GO TO WORK. HE DENIES ANY FEVER, CHILLS, NAUSEA, VOMITING, DIARRHEA, CONSTIPATION, URINARY SYMPTOMS, OR RESPIRATORY SYMPTOMS. HE DENIES RADIATION OF PAIN. Related Data Home Medications Medication Instructions Recorded Confirmed phenytoin sodium extended 300 mg 300 mg PO TID 01/11/23 01/11/23 capsule Allergies Allergy/AdvReac Type Severity Reaction Status Date / Time No Known Allergies Allergy Verified 01/11/23 12:52 Review of Systems Review of Systems: All systems reviewed & are unremarkable except as noted in HPI and below PMFSH Past Medical History Medical History Bronchitis Epilepsy Essential hypertension Hypertension Morbid obesity with body mass index (BMI) greater than or equal to 50 Surgical History Surgical History History of appendectomy History of plastic surgery Forehead from dog bite S/P tonsillectomy and adenoidectomy Family History Family History Mother Heart disease Father Malignant neoplasm of prostate Sibling Epilepsy Social History Social History Social History: The patient is legal address is with his mother. However girlfriend states that the patient states that her house more than half the time due to the number of stairs at his mother's house. The patient smokes 1.5 packs of cigarettes per day since he was a teenager. His girlfriend reports the patient does not use alcohol. He smokes marijuana somewhat frequently. Code status: Full code Patient does not have advanced directives in place. Smoking packs per day: 1.5 Smoking cigarettes per day: 30.0 Smoking status: Current every day smoker Tobacco type: cigarettes Alcohol intake: never Substance use: current Substance use type: marijuana Lack of Transportation: No Lack of Food: Never True Current Housing: I Have Housing Concerned About Future Housing: No Difficulty Paying Gas/Electric Bills: No Difficulty Paying for Meds: No Currently Unemployed: No Education: High School Diploma/GED Difficulty w/ Childcare or Family Care: No Living arrangements: with family Gender identity (if verbalized by the patient): Male Spiritual care concerns: No Exam Narrative: GENERAL APPEARANCE: WELL-DEVELOPED, WELL-NOURISHED SKIN: NORMAL COLOR HEAD: NORMOCEPHALIC, NONTRAUMATIC EYES: CLEAR CONJUNCTIVA ENT: OROPHARYNX NORMAL, EARS NORMAL, NOSE NORMAL NECK: SUPPLE, NONTENDER CHEST AND RESPIRATORY: AIRWAY PATENT, NO RESPIRATORY DISTRESS, NO ACCESSORY MUSCLE USE HEART: REGULAR RATE/RHYTHM ABDOMEN: SOFT, MILD TENDERNESS RIGHT LOWER QUADRANT, NO BRUISES, NO SWELLING, NO RASH, NO GUARDING OR REBOUND, NO ORGANOMEGALY, QUIET BOWEL SOUNDS VASCULAR: NORMAL PERIPHERAL PULSES, NORMAL CAPILLARY REFILL. MUSCULOSKELETAL: NORMAL RANGE OF MOTION, NONTENDER BACK NEUROLOGIC: ALERT AND ORIENTED ?3, CLOSET BUILDER IS NORMAL TESTED, NO GROSS MOTOR DEFICIT Course Reevaluation(s) Reevaluation #1: CURRENTLY PATIENT HAVE NO COMPLAINTS, WOULD LIKE TO GO HOME. W
[2023-07-21 15:12] LABS: Basophils Absolute Auto 0.1 K/mm3 (0.0-0.1); Basophils Percent Auto 0.3 % (0.2-1.2); Eosinophils Absolute Auto 0.1 K/mm3 (0-0.3); Eosinophils Percent Auto 0.7 % (0-4.4); Hematocrit 45.1 % (42.0-52.0); Hemoglobin 14.5 g/dL (14.0-18.0); Immature Granulocyte Absolute 0.08 K/mm3 (0.00-0.031); Immature Granulocyte Percent A 0.5 % (0-0.5); Lymphocytes Absolute Auto 1.81 K/mm3 (0.9-3.2); Mean Corpuscular HGB Conc 32.2 g/dl (32-36); Mean Corpuscular Hemoglobin 30.5 pg (26-34); Mean Corpuscular Volume 94.9 fl (80-100); Mean Platelet Volume 10.7 fl (7.4-10.4); Monocytes Absolute Auto 1.4 K/mm3 (0.1-0.6); Monocytes Percent Auto 8.4 % (2.6-8.5); Neutrophils Percent Auto 79.1 % (45.5-73.1); Platelet Count Result 205 k/mm3 (150-375); Red Blood Count 4.75 M/mm3 (4.6-6.20); Red Cell Distribution Width 12.8 % (11.5-14.5); White Blood Count 16.5 K/mm3 (4.5-10.0)
[2023-07-21] MEDS: SODIUM CHLORIDE 0.9% IV 1,000 ML 999 ML IV CONT (15:18)
[2023-07-21] MEDS: ONDANSETRON INJ 4 MG/2 ML VIAL IV PUSH (15:18)
[2023-07-21] MEDS: HYDROmorphone HCL INJ (*CRX) 1 MG/ML SYR 0.5 MG IV PUSH (15:19)
[2023-07-21 15:23] LABS: Alanine Aminotransferase 18 U/L (6-50); Albumin Level 4.4 g/dL (3.5-5.1); Alkaline Phosphatase 77 U/L (38-126); Anion Gap 10 mmol/L (8-16); Aspartate Amino Transferase 21 U/L (17-59); Bilirubin,Total 0.5 mg/dL (0.2-1.3); Blood Urea Nitrogen 10 mg/dL (9-20); Calcium 9.1 mg/dL (8.4-10.2); Carbon Dioxide 30 mmol/L (22-30); Chloride 102 mmol/L (98-107); Estimated CRCL calculation 232 ml/min; Estimated Glomerular Filt Rate > 60; Glucose 83 mg/dL (65-110); Lipase 43 U/L (23-300); Potassium 3.9 mmol/L (3.4-5.0); Sodium 142 mmol/L (137-145)
[2023-07-21 17:09] LABS: Appearance Urine Clear (Clear); Bacteria Urine None Seen /hpf; Bilirubin Urine Negative (Negative); Blood Urine Negative (Negative); Color Urine Yellow (Yellow); Glucose Urine UA Negative (Negative); Ketones Urine Negative (Negative); Leukocyte Esterase Ur Trace LEU/UL (Negative); Nitrate Urine Negative (Negative); Non Pathogenic Casts 0-2; Protein Urine Negative (Negative); RBC Urine 0-2 /hpf (0-2); Specific Grav Ur 1.027 (1.001-1.035); Squamous Epithelial Cell Urine Occasional /hpf (Few); WBC Urine 0-5 /hpf; pH Urine 6.5 (5.0-9.0)
[2023-07-21 17:10] LABS: Add Urine Microscopic? YES
[2023-07-21 18:44] VITALS: BP 168/92; PULSE 88; RESP 22; TEMP 36.6; O2SAT 99
== END 2023-07-21 18:45 | disposition home or self-care (01) ==
PROVIDERS: Emergency Provider Emergency Medicine; PCP Nurse Practitioner Family
DX: R10.9 Unspecified abdominal pain (principal); I10 Essential (primary) hypertension; F17.210 Nicotine dependence, cigarettes, uncomplicated
CPT/HCPCS: 36415; 74018; 74177; 80053; 81001; 83690; 85025; 96361; 96374; 96375; 99284; J1170; J2405; J7030; Q9967

== ENCOUNTER 2024-02-06 20:37 | Emergency (ER) | payer SELFPAY ==
[2024-02-06 20:39] VITALS: BP 144/72; PULSE 73; RESP 18; TEMP 36.5; O2SAT 98
[2024-02-06 21:59] VITALS: RESP 17; O2SAT 97
--- NOTE | 2024-02-06 22:21 | ED.GENADULT ---
HPI - General Adult General Chief complaint: Unspecified Stated complaint: request dilantin level History of Present Illness HPI narrative: This is a 33-year-old male with history of seizures presenting after missing a dose of phenytoin. Patient takes phenytoin tid. He is unsure if he took his afternoon dose. He came to the hospital for evaluation. The patient has not had any seizures last seizure was 6 months ago. No other complaints. Patient has missed doses in past and typically takes the next dose which is due at 1:00 a.m.. Related Data Home Medications Medication Instructions Recorded Confirmed phenytoin sodium extended 300 mg 300 mg PO TID 01/11/23 01/11/23 capsule Allergies Allergy/AdvReac Type Severity Reaction Status Date / Time No Known Allergies Allergy Verified 02/06/24 22:01 [facility] Past Medical History Medical History Bronchitis Epilepsy Essential hypertension Hypertension Morbid obesity with body mass index (BMI) greater than or equal to 50 Surgical History Surgical History History of appendectomy History of plastic surgery Forehead from dog bite S/P tonsillectomy and adenoidectomy Family History Family History Mother Heart disease Father Malignant neoplasm of prostate Sibling Epilepsy Social History Social History Social History: The patient is legal address is with his mother. However girlfriend states that the patient states that her house more than half the time due to the number of stairs at his mother's house. The patient smokes 1.5 packs of cigarettes per day since he was a teenager. His girlfriend reports the patient does not use alcohol. He smokes marijuana somewhat frequently. Code status: Full code Patient does not have advanced directives in place. Smoking packs per day: 1.5 Smoking cigarettes per day: 30.0 Smoking status: Current every day smoker Tobacco type: cigarettes Alcohol intake: never Substance use: current Substance use type: marijuana Lack of Transportation: No Lack of Food: Never True Current Housing: I Have Housing Concerned About Future Housing: No Difficulty Paying Gas/Electric Bills: No Difficulty Paying for Meds: No Currently Unemployed: No Education: High School Diploma/GED Difficulty w/ Childcare or Family Care: No Living arrangements: with family Gender identity (if verbalized by the patient): Male Spiritual care concerns: No Exam Narrative: APPEARANCE: No apparent distress. Head: atraumatic. EYES: EOMI, NOSE: Atraumatic NECK: Trachea midline RESPIRATORY: No increased rate of breathing CARDIOVASCULAR: RRR, ABDOMINAL: Non-distended MUSCULOSKELETAl: No obvious deformities NEURO: Alert. Moving 4/4 extremities SKIN:: Warm, dry. Normal color PSYCHIATRIC: Normal affect Course Vital Signs Vital signs: Vital Signs Temperature 97.7 F 02/06/24 20:39 Pulse Rate 73 02/06/24 20:39 Respiratory Rate 18 02/06/24 20:39 Blood Pressure 144/72 H 02/06/24 20:39 Pulse Oximetry 98 02/06/24 20:39 Oxygen Delivery Room Air 02/06/24 20:39 Temperature 97.7 F 02/06/24 20:39 Pulse Rate 73 02/06/24 20:39 Respiratory Rate 17 02/06/24 21:59 Blood Pressure 144/72 H 02/06/24 20:39 Pulse Oximetry 97 02/06/24 21:59 Oxygen Delivery Room Air 02/06/24 20:39 Medical Decision Making MDM Narrative Medical decision making narrative: -Course: 33-year-old male presenting ED concerns about missing a single dose of phenytoin. Originally they were requesting we pull his phenytoin level but after speaking with them at length we agreed that he will go home and take his nighttime dose. He will return if he has any seizures. Patient his girlfriend have poor insi
[2024-02-06 22:45] VITALS: BP 145/92; PULSE 73; RESP 20; O2SAT 98
== END 2024-02-06 22:45 | disposition home or self-care (01) ==
LOC: ANHED 22:41
PROVIDERS: Emergency Provider Emergency Medicine; PCP Nurse Practitioner Family
DX: G40.909 Epilepsy, unspecified, not intractable, without status epilepticus (principal); T42.0X6A Underdosing of hydantoin derivatives, initial encounter; Z91.138 Patient's unintentional underdosing of medication regimen for other reason; I10 Essential (primary) hypertension; E66.01 Morbid (severe) obesity due to excess calories; Z68.45 Body mass index [BMI] 70 or greater, adult; F17.210 Nicotine dependence, cigarettes, uncomplicated
CPT/HCPCS: 99281